=== PATIENT | male | born 1985 | race Caucasian/White ===

== ENCOUNTER 2020-05-05 18:11 | Emergency (ER) | payer OTHER, SELFPAY ==
--- NOTE | ~2020-05-05 | XR_ITS ---
EXAMINATION: XR foot LT min 3V DATE: 05/05/2020 18:36 INDICATION: Left foot pain TECHNIQUE: Dorsoplantar, lateral, and 2 oblique views of the left foot were obtained. COMPARISON: None. FINDINGS: There is no fracture, dislocation, or subluxation. The bones, soft tissues, and joint space s are normal. IMPRESSION: 1. No acute osseous abnormality. Reviewed, dictated and finalized at location A.
[2020-05-05 18:13] VITALS: BP 174/92; PULSE 57; RESP 17; TEMP 36.2; O2SAT 98
--- NOTE | 2020-05-05 19:51 | ED.GENADULT ---
HPI - General Adult General Chief complaint: Extremity Injury, Lower Stated complaint: foot injury Time Seen by Provider: 05/05/20 19:10 Source: patient Mode of arrival: ambulatory Limitations: no limitations History of Present Illness HPI narrative: Patient is a 34-year-old male who presents to emergency department for evaluation of left forefoot pain noting pain along the left forefoot along the great toe denies injury or trauma does have a job where he is frequently on his feet patient denies other injury or trauma has not taken anything for his symptoms denies similar occurrence in the past denies any radiation of pain denies known injury or trauma Related Data Home Medications Medication Instructions Recorded Confirmed fluoxetine [Prozac] 20 mg PO DAILY 05/05/20 05/05/20 Allergies Allergy/AdvReac Type Severity Reaction Status Date / Time No Known Allergies Allergy Unknown Verified 05/05/20 18:12 Review of Systems Review of Systems: All systems reviewed & are unremarkable except as noted in HPI and below PMFSH Social History Social History (Updated 05/05/20 @ 19:53 by Rambo Quinones PA-C) Smoking status: Never smoker Gender identity (if verbalized by the patient): Male Exam Narrative: Exam Narrative: GENERAL: Well-appearing, well-nourished, and in no acute distress. HEAD: Normocephalic, atraumatic. EYES: PERRLA and EOMI. ENT: Nares clear, no rhinorrhea or epistaxis. Mucous membranes moist. EXTREMITIES: Normal range of motion. No edema. Tenderness of the left forefoot involving the base of the great toe no erythema swelling or deformity noted SKIN: Warm, dry, no rash. NEURO: No focal deficits. Alert and oriented x3. Neurovascularly intact PSYCH: Normal mood and affect. Course Course Emergency Course: Patient in the room in no distress will be managed as a strain provided with reasons to return placed in Jp wrap and given orthopedic follow-up Vital Signs Vital signs: Vital Signs Temperature 97.2 F L 05/05/20 18:13 Pulse Rate 57 L 05/05/20 18:13 Respiratory Rate 17 05/05/20 18:13 Blood Pressure 174/92 H 05/05/20 18:13 Pulse Oximetry 98 05/05/20 18:13 Temperature 97.2 F L 05/05/20 18:13 Pulse Rate 57 L 05/05/20 18:13 Respiratory Rate 17 05/05/20 18:13 Blood Pressure 174/92 H 05/05/20 18:13 Pulse Oximetry 98 05/05/20 18:13 Medical Decision Making MDM Narrative Medical decision making narrative: Patients injury or pain is consistent with musculoskeletal etiology. No signs of neurological or vascular compromise on exam. Compartments and tisues are soft without signs of compartment syndrome. Pain is felt appropriate for further evaluation on an outpatient basis. Vital Signs Vital Signs: Vital Signs Temperature 97.2 F L 05/05/20 18:13 Pulse Rate 57 L 05/05/20 18:13 Respiratory Rate 17 05/05/20 18:13 Blood Pressure 174/92 H 05/05/20 18:13 Pulse Oximetry 98 05/05/20 18:13 Temperature 97.2 F L 05/05/20 18:13 Pulse Rate 57 L 05/05/20 18:13 Respiratory Rate 17 05/05/20 18:13 Blood Pressure 174/92 H 05/05/20 18:13 Pulse Oximetry 98 05/05/20 18:13 Imaging Data Radiologist's impression: ITS Impressions Foot X-Ray 05/05/20 18:40 IMPRESSION: 1. No acute osseous abnormality. Discharge Plan Discharge Clinical Impression: Strain of foot, left Patient Disposition: Home, Self-Care Condition: Stable Instructions: Antibiotic Form, Foot Sprain (ED) Additional Instructions: Wear Jp wrap with limited weight on the affected leg until able to bear weight without pain. Ice and elevate extremity. Pain medication as needed and directed. Follow up with your doctor for further care in the next 7 days. Return if symptoms worsen or concerns or any increase in redness swelling pain or fever over 100.5 Prescriptions: New naproxen 500 mg tablet 500 mg PO Q12H PRN (Reason: pain) Qty: 7 RF: 0 No Action flu
== END 2020-05-05 20:45 | disposition home or self-care (01) ==
PROVIDERS: Emergency Provider Emergency Medicine; PCP Family Medicine
DX: S96.912A Strain of unspecified muscle and tendon at ankle and foot level, left foot, initial encounter (principal); X58.XXXA Exposure to other specified factors, initial encounter
CPT/HCPCS: 73630; 99283

== ENCOUNTER 2020-09-10 13:19 | Emergency (ER) | payer OTHER, SELFPAY ==
--- NOTE | ~2020-09-10 | XR_ITS ---
EXAMINATION: XR chest 1V portable DATE: 09/10/2020 14:26 INDICATION: Cough and fever. TECHNIQUE: A single frontal view of the chest was obtained on 2 radiographs. COMPARISON: Chest 2 views 06/29/2017 FINDINGS: Sensitivity is decreased by obesity. The chest demonstrates clear lungs without pneumonia, pleural effusion, or pneumothorax. The heart size is normal. IMPRESSION: 1. No acute cardiopulmonary disease. Reviewed, dictated and finalized at location A. [employer]
[2020-09-10 13:29] VITALS: BP 132/79; PULSE 60; RESP 23; TEMP 36.8; O2SAT 96
--- NOTE | 2020-09-10 13:40 | ED.URI ---
HPI - URI/Sore Throat General Chief Complaint: Upper Respiratory Infection Stated Complaint: cough, fever, sob Time Seen by Provider: 09/10/20 13:23 History of Present Illness HPI Narrative: COugh, congestion, fever, headache for about the past week. Contacted PCP and was given a z-pack, which he just completed. He feels that his symptoms are not improveing. No SOB, nausea, vomiting. Related Data Home Medications Medication Instructions Recorded Confirmed allopurinol 09/10/20 aspirin 81 mg PO DAILY 09/10/20 09/10/20 atorvastatin 09/10/20 cetirizine mg 09/10/20 ezetimibe mg 09/10/20 omeprazole 09/10/20 Allergies Allergy/AdvReac Type Severity Reaction Status Date / Time No Known Allergies Allergy Unknown Verified 05/05/20 18:12 Review of Systems Review of Systems: All systems reviewed & are unremarkable except as noted in HPI and below Constitutional: Constitutional: Reports chills and Reports fever(s) ENT: Reports nasal congestion and Denies sore throat Cardiovascular: Cardiovascular: Denies chest pain Respiratory: Respiratory: Reports chest congestion, Reports cough and Denies dyspnea Gastrointestinal: Gastrointestinal: Denies abdominal pain, Denies nausea and Denies vomiting Musculoskeletal: Musculoskeletal: Reports myalgias Neurologic: Denies dizziness and Denies weakness PMF Past Medical History Medical History Healthy adult male Social History Social History Smoking status: Never smoker Gender identity (if verbalized by the patient): Male Exam Const: General: no acute distress, alert and ill appearing (mildly) Orientation/consciousness: patient oriented x3 HENMT: Head: normal to inspection Neck: Neck: normal visual inspection and no lymphadenopathy Chest: Chest palpation & inspection: no tenderness Resp: Effort & Inspection: normal respiratory effort Auscultation: clear to auscultation bilaterally, no rales, no rhonchi and no wheezes Cardio: Jugular venous distension: no JVD Rate: regular rate Rhythm: regular rhythm Heart sounds: no murmurs GI: Inspection: non-distended GI Palp: Yes Soft to palpation and No Tenderness to palpation present (GI) Skin: General skin exam: normal color Neuro: General: patient oriented x3 and moves all extremities Speech: normal speech Extrem: General: no edema Psych: Appearance: well kempt Affect: normal affect Course Vital Signs Vital signs: Vital Signs Temperature 36.8 C 09/10/20 13:29 Pulse Rate 60 09/10/20 13:29 Respiratory Rate 23 H 09/10/20 13:29 Blood Pressure 132/79 09/10/20 13:29 Pulse Oximetry 96 09/10/20 13:29 Temperature 36.8 C 09/10/20 13:29 Pulse Rate 71 09/10/20 15:15 Respiratory Rate 16 09/10/20 15:15 Blood Pressure 143/66 H 09/10/20 15:15 Pulse Oximetry 98 09/10/20 15:15 MDM - URI/Sore Throat Differential Diagnosis Differential diagnosis: Likely viral infection, bronchitis, influenza and other (COVID-19) Medical Records Attestation: I reviewed the patient's medical records. Lab Data Attestation: I reviewed the patient's lab results. Labs: Lab Results 09/10/20 Range/Units 14:48 SARS-CoV-2 RNA (RT-PCR) Positive A Imaging Data Radiologist's impression: ITS Impressions Chest X-Ray 09/10/20 14:27 IMPRESSION: 1. No acute cardiopulmonary disease. Discharge Plan Discharge Clinical Impression: Upper respiratory infection Patient Disposition: Home, Self-Care Condition: Stable Instructions: Upper Respiratory Infection (ED) Prescriptions: No Action atorvastatin 80 mg tablet RF: 0 cetirizine 10 mg tablet RF: 0 omeprazole 40 mg capsule,delayed release(DR/EC) RF: 0 allopurinol 300 mg tablet RF: 0 aspirin 81 mg Tablet 81 mg PO DAILY RF: 0 ezetimibe 10 mg tablet
[2020-09-10] MEDS: KETOROLAC 30 MG/ML VIAL (*BKC) IV PUSH (14:22)
[2020-09-10 14:56] VITALS: BP 134/79; PULSE 56; RESP 17; O2SAT 96
[2020-09-10 15:15] VITALS: BP 143/66; PULSE 71; RESP 16; O2SAT 98
[2020-09-11 01:02] LABS: SARS-CoV-2 RNA PCR Positive
== END 2020-09-10 15:14 | disposition home or self-care (01) ==
PROVIDERS: Emergency Provider Emergency Medicine; PCP Family Medicine
DX: U07.1 COVID-19 (principal); Z79.82 Long term (current) use of aspirin
CPT/HCPCS: 71045; 87635; 96374; 99284; C9803; J1885; U0003

== ENCOUNTER 2020-11-19 12:18 | Emergency (ER) | payer OTHER, SELFPAY ==
--- NOTE | ~2020-11-19 | XR_ITS ---
EXAMINATION: XR ankle RT min 3V INDICATION: Right ankle pain TECHNIQUE: Four views of the right ankle are obtained on five radiographs. COMPARISON: None available FINDINGS: There is no fracture, dislocation, or subluxation. The bones, soft tissues, and joint space s are normal. IMPRESSION: 1. No acute osseous abnormality. Reviewed, dictated and finalized at location A. POSTER
[2020-11-19 12:22] VITALS: BP 152/79; PULSE 73; RESP 18; TEMP 36.7; O2SAT 97
--- NOTE | 2020-11-19 12:58 | ED.LOWEXIN ---
HPI - Extremity Injury (Lower) General Chief Complaint: Extremity Injury, Lower Stated Complaint: injury rt foot Time Seen by Provider: 11/19/20 12:36 Source: patient Mode of arrival: wheelchair Limitations: no limitations History of Present Illness HPI Narrative: This is a 35 year old male that presents to the ER for right ankle injury sustained 2 days ago. Reports he sat on his foot while getting onto his bed. Reports since he has had pain that is worse with weight bearing and relieved with rest. Reports decreased ROM due to pain. Denies numbness. Related Data Home Medications Medication Instructions Recorded Confirmed allopurinol 09/10/20 aspirin 81 mg PO DAILY 09/10/20 09/10/20 atorvastatin 09/10/20 cetirizine mg 09/10/20 ezetimibe mg 09/10/20 omeprazole 09/10/20 Allergies Allergy/AdvReac Type Severity Reaction Status Date / Time No Known Allergies Allergy Unknown Verified 05/05/20 18:12 Review of Systems Review of Systems: Narrative: CONSTITUTIONAL: Denies fever MUSCULOSKELETAL: Reports joint pain, and myalgia. NEUROLOGIC: Denies numbness All systems reviewed & are unremarkable except as noted in HPI and below PMFSH Past Medical History Medical History (Updated 11/19/20 @ 13:59 by Elidia Humphreys PA-C) History of gastroesophageal reflux (GERD) History of hyperlipidemia Social History Social History Smoking status: Never smoker Gender identity (if verbalized by the patient): Male Exam Narrative: Exam Narrative: GENERAL: Well-appearing, well-nourished, and in no acute distress. HEAD: Normocephalic, atraumatic. EYES: EOMI. EXTREMITIES: No edema or obvious deformity. Decreased ROM in the right ankle due to pain. Normal DP pulses. Normal sensation SKIN: Warm, dry, no rash. NEURO: No focal deficits. Alert and oriented x3. PSYCH: Normal mood and affect Course Vital Signs Vital signs: Vital Signs Temperature 98.1 F 11/19/20 12:22 Pulse Rate 73 11/19/20 12:22 Respiratory Rate 18 11/19/20 12:22 Blood Pressure 152/79 H 11/19/20 12:22 Pulse Oximetry 97 11/19/20 12:22 Temperature 98.1 F 11/19/20 12:22 Pulse Rate 73 11/19/20 12:22 Respiratory Rate 18 11/19/20 12:22 Blood Pressure 152/79 H 11/19/20 12:22 Pulse Oximetry 97 11/19/20 12:22 MDM - Extremity Injury (Lower) MDM Narrative Medical decision making narrative: Patient presents to the emergency department for right ankle pain after an injury 2 days ago. Right ankle x-rays without acute osseous abnormalities. Patient was instructed on care of ankle sprain. He is to follow-up with primary care doctor. He was given warnings to return to the ER Imaging Data Radiologist's impression: ITS Impressions Ankle X-Ray 11/19/20 13:22 IMPRESSION: 1. No acute osseous abnormality. Critical Care Time Critical Care Time Critical Care Time: No Discharge Plan Discharge Clinical Impression: Ankle sprain and strain Patient Disposition: Home, Self-Care Condition: Stable Instructions: Ankle Sprain (ED) Additional Instructions: Return to the emergency department if you experience fever, redness and swelling of your leg, numbness, or any other symptoms that are concerning to you Wear BEV wrap and use crutches. No weight on the affected leg until able to bear weight without pain. Ice and elevate extremity. Pain medication as needed and directed. Follow up with your doctor for further care. Prescriptions: No Action atorvastatin 80 mg tablet RF: 0 cetirizine 10 mg tablet RF: 0 omeprazole 40 mg capsule,delayed release(DR/EC) RF: 0 allopurinol 300 mg tablet RF: 0 aspirin 81 mg Tablet 81 mg PO DAILY RF: 0 ezetimibe 10 mg tablet RF: 0 Follow-up/Referrals: Aries,MD Luis [Primary Care Provider] - 1 Week
[2020-11-19] MEDS: HYDROcodone/acetaminophen (*CRX) 5-325 MG TABLET 1 TAB PO (13:12)
--- NOTE | 2020-11-19 13:18 | PC.NURSE ---
sitting in room in wheelchair. SO present. pain medication given. waiting for xray results.
--- NOTE | 2020-11-19 13:45 | PC.NURSE ---
BEV wrap to right foot and right ankle. patient sitting in wheelchair in room. crutches given. denies need for crutch teaching. has used several times previously. waiting for discharge orders from provider.
== END 2020-11-19 14:20 | disposition home or self-care (01) ==
PROVIDERS: Emergency Provider Emergency Medicine; PCP Family Medicine
DX: S93.401A Sprain of unspecified ligament of right ankle, initial encounter (principal); S96.911A Strain of unspecified muscle and tendon at ankle and foot level, right foot, initial encounter; K21.9 Gastro-esophageal reflux disease without esophagitis; E78.5 Hyperlipidemia, unspecified; X58.XXXA Exposure to other specified factors, initial encounter
CPT/HCPCS: 73610; 99283; A9270

== ENCOUNTER 2023-05-11 12:00 | Emergency (ER) | payer OTHER, SELFPAY ==
--- NOTE | ~2023-05-11 | XR_ITS ---
EXAMINATION: XR hip RT 2V w AP pelvis DATE: 05/11/2023 14:08 INDICATION: Right pelvic pain. TECHNIQUE: An anteroposterior view of the pelvis and 2 views of right hip were obtained. COMPARISON: Pelvis CT 02/10/2019 FINDINGS: Bone alignment is normal. No fracture. Joint spaces are well maintained. IMPRESSION: 1. Normal pelvis and right hip. Reviewed, dictated and finalized at location A.
[2023-05-11 12:27] VITALS: BP 152/90; PULSE 70; RESP 16; TEMP 36.5; O2SAT 99
[2023-05-11] MEDS: KETOROLAC (*BKC) 60 MG/2 ML VIAL IM (13:57)
--- NOTE | 2023-05-11 14:03 | PC.NURSE ---
Pt taken to Xray by [facility] at this time.
--- NOTE | 2023-05-11 14:08 | PC.NURSE ---
Pt returned from xray to room by [employer].
--- NOTE | 2023-05-11 14:45 | PC.NURSE ---
ERP Dr Ray at bedside at this time.
--- NOTE | 2023-05-11 14:48 | ED.GENADULT ---
HPI - General Adult General Chief complaint: Urogenital-Male Stated complaint: GROIN PAIN Time Seen by Provider: 05/11/23 13:29 History of Present Illness HPI narrative: Patient is a 37-year-old male who presents ER with right groin pain. He was stepping out of his truck when he had sudden onset pain. No swelling or bulge noted. Pain worse with bearing weight. He has not taken any pain medication. Denies any pain in his testicle. Its in the crease where the leg meets the trunk. It radiates down his medial thigh as well. Related Data Home Medications Medication Instructions Recorded Confirmed allopurinol 300 mg tablet 09/10/20 aspirin 81 mg tablet 81 mg PO DAILY 09/10/20 09/10/20 atorvastatin 80 mg tablet 09/10/20 cetirizine 10 mg tablet mg 09/10/20 ezetimibe 10 mg tablet mg 09/10/20 omeprazole 40 mg capsule,delayed 09/10/20 release Allergies Allergy/AdvReac Type Severity Reaction Status Date / Time No Known Allergies Allergy Unknown Verified 05/11/23 12:00 Review of Systems Constitutional: Constitutional: Denies chills and Denies fever(s) Genitourinary: Genitourinary: Denies testicular pain and Denies urinary frequency Musculoskeletal: Musculoskeletal: Denies arthralgias, Denies joint swelling and Reports muscle cramps Integumentary/Breasts: Skin/Breast: Denies erythema Neurologic: Denies focal weakness and Denies numbness PMFSH Past Medical History Medical History (Updated 05/11/23 @ 14:49 by Ludin Johns MD) History of gastroesophageal reflux (GERD) History of hyperlipidemia Social History Social History (System 03/27/21 @ 09:24 by Ana Colby) Smoking status: Never smoker Gender identity (if verbalized by the patient): Male Exam Narrative: GENERAL: Well-appearing, well-nourished, and in no acute distress. HEAD: Normocephalic, atraumatic. CHEST: Clear to auscultation. No respiratory distress. HEART: Regular rate and rhythm. Normal peripheral pulses. : Normal external genitalia. No hernia in the inguinal canal bilaterally. No palpable mass in the right inguinal region or over the femoral artery. EXTREMITIES: Normal range of motion. No edema. SKIN: Warm, dry, no rash. NEURO: Alert and oriented x3. PSYCH: Normal mood and affect. Course Course Emergency Course: Symptoms felt to be related to muscle strain. Pain improved with Toradol. Discussed imaging results. Discharge home. Vital Signs Vital signs: Vital Signs Temperature 97.7 F 05/11/23 12:27 Pulse Rate 70 05/11/23 12:27 Respiratory Rate 16 05/11/23 12:27 Blood Pressure 152/90 H 05/11/23 12:27 Pulse Oximetry 99 05/11/23 12:27 Temperature 97.7 F 05/11/23 12:27 Pulse Rate 65 05/11/23 15:10 Respiratory Rate 16 05/11/23 15:10 Blood Pressure 126/70 05/11/23 15:10 Pulse Oximetry 96 05/11/23 15:10 Medical Decision Making Vital Signs Vital Signs: Vital Signs Temperature 97.7 F 05/11/23 12:27 Pulse Rate 70 05/11/23 12:27 Respiratory Rate 16 05/11/23 12:27 Blood Pressure 152/90 H 05/11/23 12:27 Pulse Oximetry 99 05/11/23 12:27 Temperature 97.7 F 05/11/23 12:27 Pulse Rate 65 05/11/23 15:10 Respiratory Rate 16 05/11/23 15:10 Blood Pressure 126/70 05/11/23 15:10 Pulse Oximetry 96 05/11/23 15:10 Lab Data Labs: Urine Characteristics Clear Discharge Plan Discharge Clinical Impression: Groin strain Patient Disposition: Home, Self-Care Condition: Stable Instructions: Groin Strain (ED) Additional Instructions: You strained a muscle in your groin. Take anti-inflammatory medication to decrease your discomfort, you may also take muscle relaxers in the evening but do not drive while taking them. Return the ER if you have new focal numbness or weakness to your leg, you develop new swelling in your groin region, or you have pain in y
[2023-05-11 15:10] VITALS: BP 126/70; PULSE 65; RESP 16; O2SAT 96
== END 2023-05-11 15:12 | disposition home or self-care (01) ==
PROVIDERS: Emergency Provider Emergency Medicine; PCP Family Medicine
DX: E78.5 Hyperlipidemia, unspecified (principal); K21.9 Gastro-esophageal reflux disease without esophagitis
CPT/HCPCS: 73502; 96372; 99283; J1885

== ENCOUNTER 2023-10-05 21:03 | Emergency (ER) | payer OTHER, SELFPAY ==
--- NOTE | ~2023-10-05 | XR_ITS ---
XR ankle LT min 3V 10/05/2023 21:29 INDICATION: Left ankle pain PROCEDURE: 4 views left ankle COMPARISON: . No prior studies for comparison. FINDINGS: Fracture, dislocation or subluxation is not identified. Mild lateral soft tissue swelling. No foreign bodies are identified. IMPRESSION: 1: NO ACUTE BONE OR JOINT ABNORMALITY IDENTIFIED. Reviewed, dictated and finalized at location A. TBREAD TRIMMER
[2023-10-05 21:04] VITALS: BP 149/69; PULSE 67; RESP 18; TEMP 36.3; O2SAT 99
--- NOTE | 2023-10-05 22:45 | ED.LOWEXIN ---
HPI - Extremity Injury (Lower) General Chief Complaint: Extremity Injury, Lower Stated Complaint: left ankle pain Time Seen by Provider: 10/05/23 21:53 Source: patient Mode of arrival: ambulatory Limitations: no limitations History of Present Illness HPI Narrative: Patient is a 38-year-old male who presents the ED with report of left ankle pain. Patient reports pain began yesterday and was mild at first. Pain has progressively worsened to the point he is having a hard time bearing weight on his left ankle. He denies any injury, fall, twisting his ankle. Reports mild redness and swelling. He took Ibuprofen earlier for the pain w/o significant improvement. Reports history of gout in the past which was in a toe of his R foot. Denies numbness or tingling. Related Data Home Medications Medication Instructions Recorded Confirmed allopurinol 300 mg tablet 09/10/20 aspirin 81 mg tablet 81 mg PO DAILY 09/10/20 09/10/20 atorvastatin 80 mg tablet 09/10/20 cetirizine 10 mg tablet mg 09/10/20 ezetimibe 10 mg tablet mg 09/10/20 omeprazole 40 mg capsule,delayed 09/10/20 release Allergies Allergy/AdvReac Type Severity Reaction Status Date / Time No Known Allergies Allergy Unknown Verified 10/05/23 21:23 Review of Systems Review of Systems: CONSTITUTIONAL: Denies fever, chills, or sweats. MUSCULOSKELETAL: See HPI. NEUROLOGIC: Denies headache, dizziness, numbness, or weakness. All systems reviewed & are unremarkable except as noted in HPI and below PMFSH Past Medical History Medical History History of gastroesophageal reflux (GERD) History of hyperlipidemia Social History Social History Smoking status: Never smoker Gender identity (if verbalized by the patient): Male Exam Narrative: GENERAL: Well appearing, morbidly obese with BMI 45.2, non-toxic, in no acute distress. HEAD: Normocephalic, atraumatic. RESPIRATORY: Airway patent, respirations nonlabored. CARDIOVASCULAR: Regular rate and rhythm without murmurs, rubs, or gallops. Pedal pulses 2+ ABDOMINAL: Soft, nontender, nondistended. Normoactive BS. MUSCULOSKELETAL: Moves all extremities. No gross deformities. Limited range of motion of left ankle due to pain. Mild swelling noted to left ankle joint. Minimal erythema, no warmth. Tenderness to palpation across this anterior lateral ankle/dorsal foot. No tenderness throughout remainder of foot. SKIN: Warm, dry, normal color. NEURO: A&O X3. Speech clear. Cranial nerves II-XII grossly intact. No ataxic movements. PSYCHIATRIC: Appropriate mood and affect. Normal interaction. Course Vital Signs Vital signs: Vital Signs Temperature 97.3 F L 10/05/23 21:04 Pulse Rate 67 10/05/23 21:04 Respiratory Rate 18 10/05/23 21:04 Blood Pressure 149/69 H 10/05/23 21:04 Pulse Oximetry 99 10/05/23 21:04 Oxygen Delivery Room Air 10/05/23 21:04 Temperature 97.3 F L 10/05/23 21:04 Pulse Rate 67 10/05/23 21:04 Respiratory Rate 18 10/05/23 21:04 Blood Pressure 149/69 H 10/05/23 21:04 Pulse Oximetry 99 10/05/23 21:04 Oxygen Delivery Room Air 10/05/23 21:04 MDM - Extremity Injury (Lower) MDM Narrative Medical decision making narrative: Patient presented to ED with 2 day history of left ankle pain. No signs of neurologic or vascular compromise on physical examination. Compartments are soft without signs of compartment syndrome. XR negative. No injury. Suspect gout versus ankle strain. No lower extremity swelling or calf tenderness to suggest DVT. No wounds to suggest cellulitis. Will treat for possible gout with naproxen, Jp bandage, crutches for assistance with ambulation. Patient is felt to be stable for discharge home and further outpatient management and treatment. Advised patient to follow-up with primary care doctor, savannah nugent
[2023-10-05] MEDS: KETOROLAC (*BKC) 60 MG/2 ML VIAL IM (23:20)
== END 2023-10-05 23:34 | disposition home or self-care (01) ==
PROVIDERS: Emergency Provider Physician Assistant; PCP Family Medicine
DX: M25.572 Pain in left ankle and joints of left foot (principal); E78.5 Hyperlipidemia, unspecified
CPT/HCPCS: 73610; 96372; 99283; J1885

== ENCOUNTER 2023-10-27 22:09 | Emergency (ER) | payer OTHER, SELFPAY ==
--- NOTE | ~2023-10-27 | XR_ITS ---
Clinical Indication: Cough, fever PA and lateral views of the chest: Comparison: 09/10/2020 Findings: The lungs are clear, without evidence of focal consolidation or pleural effusion. Cardiome diastinal silhouette is within normal limits. Bones and soft tissues are unremarkable. Impression: Normal chest. Reviewed, dictated and finalized at [facility]. SH HISTORY PROFESSOR Impression: Normal chest.
[2023-10-27 22:10] VITALS: BP 139/68; PULSE 82; RESP 18; TEMP 37.3; O2SAT 98
[2023-10-28 00:16] VITALS: PULSE 91; RESP 16; TEMP 37.7; O2SAT 96; O2SAT 98
--- NOTE | 2023-10-28 00:32 | ECG_ITS ---
Measurements Intervals [place] Rate: 74 P: 17 NE: 159 QRS: 23 QRSD: 94 T: 93 QT: 341 QTc: 380 Interpretive Statements SINUS RHYTHM NONSPECIFIC T-WAVE ABNORMALITY- HIGH LATERAL LEADS BASELINE ARTIFACT- V5-V6 BORDERLINE ECG NO PREVIOUS ECG AVAILABLE FOR COMPARISON Electronically Signed On 10-28-2023 6:39:13 FOREMAN/PROJECT MANAGER by Kevon Patel D.O.
[2023-10-28 00:53] LABS: Influenza A QL RT-PCR Positive (Negative); Influenza B QL RT-PCR Negative (Negative); RSV RNA, RT-PCR Negative (Negative); SARS-CoV-2 RNA PCR Negative (Negative)
[2023-10-28] MEDS: ACETAMINOPHEN 500 MG TABLET 1000 MG PO (01:21)
[2023-10-28 01:44] VITALS: BP 110/96; PULSE 70; RESP 20; O2SAT 96
--- NOTE | 2023-10-28 01:46 | ED.URI ---
HPI - URI/Sore Throat General Chief Complaint: Shortness of Breath/Dyspnea Stated Complaint: pain with inspiration Time Seen by Provider: 10/28/23 00:31 Source: patient and family Limitations: no limitations History of Present Illness HPI Narrative: Patient is a 38-year-old male presents to the emergency department accompanied by his for multiple complaints. Patient states since Thursday or Thursday he has been experiencing generalized body aches, chills, difficulty breathing, headache, nasal congestion, cough with minimal sputum production. Patient denies sick contacts. Patient denies fever, recent injuries, urinary discomfort, rash, sore throat, nausea, vomiting, diarrhea, chest pain. Patient admits to using [id number] Motrin and Mucinex for symptoms. Related Data Home Medications Medication Instructions Recorded Confirmed allopurinol 300 mg tablet 09/10/20 aspirin 81 mg tablet 81 mg PO DAILY 09/10/20 09/10/20 atorvastatin 80 mg tablet 09/10/20 cetirizine 10 mg tablet mg 09/10/20 ezetimibe 10 mg tablet mg 09/10/20 omeprazole 40 mg capsule,delayed 09/10/20 release Allergies Allergy/AdvReac Type Severity Reaction Status Date / Time No Known Allergies Allergy Unknown Verified 10/27/23 22:16 Review of Systems Review of Systems: A 10 system review of systems was completed on the patient and is negative except for what is stated in the HPI. Nursing and ancillary documentation was reviewed. [facility] Past Medical History Medical History History of gastroesophageal reflux (GERD) History of hyperlipidemia Social History Social History Smoking status: Never smoker Gender identity (if verbalized by the patient): Male Comments At time of signature, I have reviewed and agree with nursing past medical, surgical, social and family history unless otherwise noted. Please see the nursing chart for further information. There is no relevant family history pertinent to the presenting complaint. Exam Narrative: CONST: No acute distress. Well nourished. Obese. HENMT: Head is normocephalic and atraumatic. Tacky mucous membranes. No posterior oropharynx erythema. EYES: No conjunctival icterus, injection, or pallor. PERRL. NECK: No meningeal signs. No palpable cervical lymphadenopathy. RESP: Able to speak in full sentences. Normal respiratory effort. CTAB. CARDIO: Regular rate. Regular rhythm. 2+ DP and radial pulses bilaterally. GI: Nondistended. No tenderness to palpation. Soft. : No CVA tenderness to palpation. SKIN: No rashes or lesions noted on exposed skin. NEURO: Oriented x3. Moves all extremities. EXTREM/MSK/BACK: No pedal edema. PSYCH: Normal affect. Course Vital Signs Vital signs: Vital Signs Temperature 99.2 F 10/27/23 22:10 Pulse Rate 82 10/27/23 22:10 Respiratory Rate 18 10/27/23 22:10 Blood Pressure 139/68 10/27/23 22:10 Pulse Oximetry 98 10/27/23 22:10 Oxygen Delivery Room Air 10/27/23 22:10 Temperature 99.9 F H 10/28/23 00:16 Pulse Rate 70 10/28/23 01:44 Respiratory Rate 20 10/28/23 01:44 Blood Pressure 110/96 H 10/28/23 01:44 Pulse Oximetry 96 10/28/23 01:44 Oxygen Delivery Room Air 10/28/23 00:16 MDM - URI/Sore Throat MDM Narrative Medical decision making narrative: Patient presents with the above complaint. Initial vitals are remarkable for no significant abnormalities. Physical examination as noted above. Plan discussed: COVID/flu/RSV nasopharyngeal PCR testing, chest x-ray, EKG, Tylenol 1 g p.o. Patient was reassessed at the bedside. No changes in physical exam. Patient is in no acute distress. The patient has remained stable throughout the entire ED visit. Counseled patient regarding diagnostic results and potential diagnosis. Anticipatory guidance provided. Patient instructed to follow up
[2023-10-28] MEDS: OSELTAMIVIR PHOSPHATE 75 MG CAPSULE PO (01:57)
== END 2023-10-28 02:01 | disposition home or self-care (01) ==
PROVIDERS: Emergency Provider Student in an Organized Health Care Education/Training Program; PCP Family Medicine
DX: J10.1 Influenza due to other identified influenza virus with other respiratory manifestations (principal); E78.5 Hyperlipidemia, unspecified; Z20.822 Contact with and (suspected) exposure to COVID-19
CPT/HCPCS: 71046; 87637; 93005; 99284; A9270

== ENCOUNTER 2024-12-12 10:08 | Outpatient (CLI) | payer OTHER, SELFPAY ==
[2024-12-12 11:21] LABS: Add Urine Microscopic? NO; Appearance Urine Clear (Clear); Bilirubin Urine Negative (Negative); Blood Urine Negative (Negative); Color Urine Yellow (Yellow); Glucose Urine UA Negative (Negative); Ketones Urine Trace mg/dL (Negative); Leukocyte Esterase Ur Negative LEU/UL (Negative); Nitrate Urine Negative (Negative); Protein Urine Negative (Negative); Specific Grav Ur 1.022 (1.001-1.035); pH Urine 7.5 (5.0-9.0)
[2024-12-12 11:23] LABS: Basophils Absolute Auto 0.1 K/mm3 (0.0-0.1); Basophils Percent Auto 0.8 % (0.2-1.2); Eosinophils Absolute Auto 0.2 K/mm3 (0-0.3); Eosinophils Percent Auto 3.9 % (0-4.4); Hematocrit 44.5 % (42.0-52.0); Hemoglobin 15.3 g/dL (14.0-18.0); Immature Granulocyte Absolute 0.03 K/mm3 (0.00-0.031); Immature Granulocyte Percent A 0.5 % (0-0.5); Lymphocytes Absolute Auto 2.17 K/mm3 (0.9-3.2); Lymphocytes Percent Auto 36.7 % (18.3-44.2); Mean Corpuscular HGB Conc 34.4 g/dl (32-36); Mean Corpuscular Hemoglobin 29.7 pg (26-34); Mean Corpuscular Volume 86.2 fl (80-100); Mean Platelet Volume 10.5 fl (7.4-10.4); Monocytes Absolute Auto 0.6 K/mm3 (0.1-0.6); Monocytes Percent Auto 9.5 % (2.6-8.5); Neutrophils Absolute Auto 2.9 K/mm3 (1.3-6.7); Neutrophils Percent Auto 48.6 % (45.5-73.1); Platelet Count Result 233 k/mm3 (150-375); Red Blood Count 5.16 M/mm3 (4.6-6.20); Red Cell Distribution Width 12.1 % (11.5-14.5); White Blood Count 5.9 K/mm3 (4.5-10.0)
[2024-12-12 11:37] LABS: Alanine Aminotransferase 35 U/L (6-50); Albumin Level 4.6 g/dL (3.5-5.1); Alkaline Phosphatase 89 U/L (38-126); Anion Gap 12 mmol/L (4-12); Aspartate Amino Transferase 33 U/L (17-59); Bilirubin,Total 0.5 mg/dL (0.2-1.3); Blood Urea Nitrogen 12 mg/dL (9-20); Calcium 9.6 mg/dL (8.4-10.2); Carbon Dioxide 24 mmol/L (22-30); Chloride 104 mmol/L (98-107); Cholesterol 269 mg/dL (0-200); Estimated Glomerular Filt Rate > 60; Glucose 90 mg/dL (65-110); HDL Direct 42 mg/dL; Potassium 4.3 mmol/L (3.4-5.0); Sodium 140 mmol/L (137-145); Triglycerides 213 mg/dL (<150)
[2024-12-12 11:47] LABS: LDL Cholesterol Direct 161 mg/dL
[2024-12-12 12:19] LABS: Free T4 Free Thyroxine 0.82 ng/dL (0.78-2.19)
[2024-12-12 16:59] LABS: Hemoglobin A1C 5.2 % (<5.7)
[2024-12-13 06:53] LABS: FSH <0.7 mIU/mL (1.4-12.8); LH 0.2 mIU/mL (1.5-9.3); Sex Hormone Binding Globulin 17 nmol/L (10-50)
[2024-12-14 08:38] LABS: Prostate Specific Antigen 0.7 ng/mL (< OR = 4.0)
[2024-12-15 23:43] LABS: Testosterone Free 42.3 pg/mL (46.0-224.0)
== END 2024-12-12 10:09 | disposition home or self-care (01) ==
PROVIDERS: PCP Family Medicine; Referring Provider Family Medicine
DX: E55.9 Vitamin D deficiency, unspecified (principal); E66.01 Morbid (severe) obesity due to excess calories; Z00.00 Encounter for general adult medical examination without abnormal findings
CPT/HCPCS: 36415; 80053; 80061; 81003; 82306; 82672; 83001; 83002; 83036; 84153; 84270; 84402; 84439; 84443; 85025; 85305; G0103

== ENCOUNTER 2025-10-08 20:26 | Emergency (ER) | payer OTHER, SELFPAY ==
--- OUTSIDE RECORDS SUMMARY | 2019-08-01 03:55 | XMS_ITS | Continuity of Care Document ---
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 Please verify the information with the corey of the legal document before using it for clinical purposes. Encounters Encounter Description Practice Location Reason(s) For Visit Diagnoses Date Provider Providers Copied on Encounter DISABILITY EXAMINATION [facility] , [address], [place], [address], [place] tel:[phone] [facility] Body mass index (BMI) 40.0-44.9, adultElevated blood-pressure reading, w/o diagnosis of htnLow back painStrain of lumbar region, initial encounter [address] [place]. [address] [address], [place], [place], [id number] . tel: [phone] Family History Family Member Type Diagnosis Age At Onset Mother Problem (finding) Alive and well Father Problem (finding) Cardiovascular disease Father Problem (finding) malignant neop lasm of skin (Cause Of ) Payers Payer name Insurance type Covered alliance party ID Authoriza tion(s) No Information Social History Type Description Quantity Date Captured Comments Alcohol Use Details Caffeine Use Details soda Tobacco Use Status Current non-smoker 19 Smoking Status Never smoker Non-Smoking Tobacco Use Details : No Details Available : No Details Available Sex Male Vital Signs Date / Time: Height Weight BMI Pulse Rate Blood Pressure Temperature Respiratory Rate Body Surface Area Head Circumference Head Circ. Percentile Wt./Sudhir. Percentile BMI percentile Pulse Ox Inhaled Ox 11:43 AM 71.00 in 136.078 kg (300.00 lbs) 41.8 4 kg/m eter (2) 77 /min 141/97 mm[Hg] Chief Complaint And Reason For Visit No Information Reason For Referral Reason For Referral No Information Plan Of Treatment Date Type Action Status Goal Lifestyle education regardin g diet completed History Of Present Illness Encounter Date Complaint History Of Prese nt Illness No Information Functional Status Date Functional Assessmen t Pain Score 3/10 Instructions Date Instruction Additional Infor mation Lifestyle education regarding di et Related to Body mass index (BMI) 40.0-44.9, adult Giving encouragement to exercise Related to Elevated blood-pressure reading, without diagnosis of hypertension Assessments Type Assessment Date assessment Body mass index (BMI) 40.0-44.9, adult assessment Elevated blood-press ure reading, without diagnosis of hypertension assessment Low back pain assessment Strain of lumbar region, initial encounter Patient Care Teams Name Effective Dates (start - stop) Status Members No Information
--- NOTE | ~2025-10-08 | XR_ITS ---
XR hand LT 2V 10/08/2025 21:10 Indication: Dog bite Procedure: 2 views left hand Comparison: No prior studies for comparison. Findings: No fracture, subluxation or dislocation. There is foreign body overlying the third metacarpal. Normal mineralization. Normal anatomic alignment. Impression: 1: Foreign body overlying the third metacarpal of uncertain origin. Reviewed, dictated and finalized at location O. IFICATION MANAGER Impression: 1: Foreign body overlying the third metacarpal of uncertain origin.
[2025-10-08 20:27] VITALS: BP 149/79; PULSE 67; RESP 16; TEMP 36.7; O2SAT 99
--- OUTSIDE RECORDS SUMMARY | 2025-10-08 20:29 | XMS_ITS | Clinical Summary ---
Author Organization [facility] Address [address] [place] [address] Care Team Providers Care Light Technician Name Role Phone Unavailable Primary Care Provider Unavailabl e Source Comments [facility],non-owned Affiliates and Associated Physician Practices is amultiple site organization consisting of ambulatory clinics and hospital sitesin [place], [place], [place] and [place]. This disclosure is being madepursuant to the Care Everywhere program and may not contain all information available regarding this patient. Last updated 18.[facility] Allergies No known active allergies Medications * Be aware that medications may not be up to date on this document. Alwaysverify current medications with the patient. albuterol HFA (PROAIR HFA) 108 (90 BASE) MCG/ACT inhaler Inhale 2 Puffs by mouth every 4 hours as needed for Shortness of Breath, Wheezing or Cough 1 Inhaler 7 Active benzonatate (TESSALON) 100 MG capsule Take 1 Cap by mouth 3 times daily as needed for Cough 30 Cap 7 Active Active Problems No known active problems Social History Tobacco Use Types Packs/Day Years Used Date Smoking Tobacco: Never Sex and Gender Information Value Date Recorded Sex Assigned at Not on file Legal Sex Male 11:09 AM CDT Gender Identity Not on file Sexual Orientation Not on file Last Filed Vital Signs Vital Sign Reading Time Taken Comments Blood Pressure 128/90 01/28/2017 4:41 PM CDT Pulse 69 01/28/2017 4:41 PM CDT Temperature 36.9 C (98.5 F) 01/28/2017 4:41 PM CDT Respiratory Rate 18 01/28/2017 4:41 PM CDT Oxygen Saturation 97% 01/28/2017 4:41 PM CDT Inhaled Oxygen Concentration - - Weight 136.1 kg (300 lb) 01/28/2017 4:41 PM CDT Height 177.8 cm (5' 10) 01/28/2017 4:41 PM CDT Body Mass Index 43.05 01/28/2017 4:41 PM CDT Plan of Treatment Health Maintenance Due Date Last Done Comments LIPID TESTING 1985 HIV SCREENING 2000 HEPATITIS C SCREENING 07/04/2003 DTAP/TDAP/TD VACCINES (1 - Tdap) 2004 HEPATITIS B VACCINE (1 of 3 - 19+ 3-dose series) 2004 HPV VACCINE (1 - 3-dose SCDM series) 2012 DEPRESSION SCREENING 10/12/2024 COVID-19 VACCINE (1 - 2024-2 6 season) 2025 INFLUENZA VACCINE (#1) 2025 ZOSTER VACCINE (1 of 2) 2035 HIB VACCINE Aged Out No longer eligi ble based on patient's age to complete this topic MENINGOCOCCAL (Group B) VACC INE SHARED DECISION-MAKING Aged Out No longer eligibl e based on patient's age to complete this topic MENINGOCOCCAL GROUPS A/C/Y/W VACCINE Aged Out No longer eligible b ased on patient's age to complete this topic PNEUMOCOCCAL VACCINE Aged Out No long er eligible based on patient's age to complete this topic Insurance [facility]
--- OUTSIDE RECORDS SUMMARY | 2025-10-08 20:29 | XMS_ITS | Data Portability ---
Author Organization [place] [facility] [employer], Main Office Address [address] [place] [address] Care Team Providers Care Drama Professor Name Role Phone LUIS CHRIS Primary Care Provider LUIS CHRIS Referring Provider [phone] LUIS CHRIS Primary Care Provider [phone] Assessment Encounter Date Assessment Date Assessment LastModified by Organization Details LastModified Time 01/30/2025 01/30/2025 This note is dictated and transcribed by [employer]. [employer] variances may occur. Despite proofreading, typographical errors may occur. Occasional wrong-word or '[id number]' substitutions may have occurred due to the inherent limitations of voice recording. Read the chart carefully and recognize, using context, where substitutions have occurred. [email or web address] Not available 01/30/2025 10:22:56 01/31/2025 01/31/2025 39 yo M with - WT LOSS PROGRAM - HTN (diet controlled) - HLD - HTG - ED - GOUT - GERD - VIT D DEFICIENCY - ALLERGIC RHINITIS - CHRONIC LOW BACK PAIN - BENI (On Cpap) - MORBID OBESITY III - H/O H PYLORI GASTRITIS - H/O CHEST PAIN, Intermittent Annual labs: 12/12/24. Annual labs: 11/25/21. X-ray Rt ankle: 11/19/20. CXR: 09/10/20. Annual labs: 07/19/20. US Abdo: 04/24/20. Labs: 04/23/20. CXR: 11/03/19. X-ray L-spine: 11/03/19. Sleep study: 08/12/19. Annual labs: 05/19/19. Wt: 317(12/09/21) - 326(08/13/22) [Pt stopped] Wt: 334(12/15/24) - 320(01/31/25) D/w pt in detail about his findings, recent labs & imagines and further plan of care. All meds verified with pt. Meds as directed. Risks Vs benefits of Aspirin 81mg po daily with food explained. Pt agreed. BP diary education given and call us if any concerns. Diet and exercise explained in detail. Explained about different options for wt loss. Educated pt about alarming symptoms to monitor at home and call us back or get checked in ED. Cont f/u with Chemical Analytical Sampler as per schedule. Cont f/u with GI as per schedule. Cont f/u with Cardio as per schedule. Cont f/u with Ophtho as per schedule. Offered to refer to Wt loss clinic; but pt declined. Zepbound was not covered with his insurance. HM: EGD - 06/04/20, H pylori gastritis ++. Cont f/u with GI as per their recommendations. Flu - Pt declined. Tdap - At HD. F/u in 2 months. Lipids, uric acid in 04/05. Annual labs in 12/07. [email or web address] Not available 01/31/2025 16:29:09 07/25/2025 07/25/2025 40 yo M with - CHRONIC EPISTAXIS - WT LOSS PROGRAM - HTN - HLD - HTG - ED - GOUT - GERD - VIT D DEFICIENCY - ALLERGIC RHINITIS - CHRONIC LOW BACK PAIN - BENI (On Cpap) - MORBID OBESITY III - H/O H PYLORI GASTRITIS - H/O CHEST PAIN, Intermittent Annual labs: 12/12/24. Annual labs: 11/25/21. X-ray Rt ankle: 11/19/20. CXR: 09/10/20. Annual labs: 07/19/20. US Abdo: 04/24/20. Labs: 04/23/20. CXR: 11/03/19. X-ray L-spine: 11/03/19. Sleep study: 08/12/19. Annual labs: 05/19/19. Wt: 317(12/09/21) - 326(08/13/22) [Pt stopped] Wt: 334(12/15/24) - 320(01/31/25) - 305(07/25/25) D/w pt in detail about his findings, recent labs & imagines and further plan of care. Will refer pt to ENT. All meds verified with pt. Meds as directed. Risks Vs benefits of Aspirin 81mg po daily with food explained. Pt agreed. BP diary education given and call us if any concerns. Diet and exercise explained in detail. Explained about different options for wt loss. BP diary education given. Educated pt about alarming symptoms to monitor at home and call us back or get checked in ED. F/u with ENT as per schedule. Cont f/u with Chemical Analytical Sampler as per schedule. Cont f/u with GI as per schedule. Cont f/u with Cardio as per schedule. Cont f/u with Ophtho as per schedule. Offered to refer to Wt loss clinic; but pt declined. Zepbound was not covered with his insurance. HM: EGD - 06/04/20, H pylori gastritis ++. Cont f/u with GI as per their recommendations. Flu - Pt declined. Tdap - Pt declined. F/u in 1 month. Lipids, uric acid before next visit. Annual labs in 12/07. Not available 07/25/2025 11:38:28 Plan of Treatment Reminders Order Date Submit Date Provider Last Modified By Organization Details Last Modified Time Details Appointments None recorded. Lab uric acid, serum or plasma [address] (Lab), [address] [place], [address], 16:29:01 lipid panel, serum [address] (Lab), [address] [place], [address], 16:29:01 Referral ENT surgery referral - Please call patient to schedule an appointmen t. Thank you 2024 CARY Mills MD, [address], [place], [address], 10/14/202 5 13:01:03 director of safety referral - Please call patient to schedule an appointmen t. Thank you. 2024 025 [email or web address] Basil Cordero DPM, [address] [facility], [place], [address], 5 11:29:58 Procedures nasal cautery (PROC) 2024 025 [email or web address] Not available 09:46:17 Surgeries None recorded. Imaging XR, foot, 3 or more view 2024 025 [email or web address] [facility] [place], [address] [facility] [address], [place], [address], 5 10:52:28 XR, foot, 3 or more view [email or web address] [place] [address] Podiat[facility] [place], [address] [facility] [address], [place], [address], 5 10:52:28 XR, foot, 3 or more view 2024 025 [email or web address] [facility] ([facility]), [address] [place], [address], 5 14:23:31 Medication Orders allopurino l 300 mg tablet 2024 025 [facility]/Pharmacy #[id number], [address], [place], [address], 5 11:10:45 ezetimibe 10 mg tablet 2024 025 [facility]/Pharmacy #[id number], [address], [place], [address], 5 11:11:30 lisinopril 5 mg tablet 2024 025 [facility] #[id number], [address], [place], [address], 11:10:48 phentermin e 30 mg capsule 2024 025 [email or web address] [id number], [address], [place], [address], 14:15:51 atorvastat in 80 mg tablet 2024 [id number], [address], [place], [address], 11:10:55 Wegovy 0.25 mg/0.5 mL subcutaneo us pen injector 2024 [id number], [address], [place], [address], 14:16:00 ergocalcif alley (vitamin D2) 1,250 mcg (50,000 unit) capsule 2024 [id number], [address], [place], [address], 11:10:53 omeprazole 40 mg capsule,de layed release 2024 025 [id number], [address], [place], [address], 11:10:58 allopurino l 300 mg tablet 2024 025 [facility]/Pharmacy #[id number], [address], [place], [address], 16:23:43 ezetimibe 10 mg tablet 2024 025 [id number], [address], [place], [address], 5 16:23:44 phentermin e 15 mg capsule 2024 025 [email or web address] [id number], [address], [place], [address], 11:12:30 atorvastat in 80 mg tablet 2024 025 [id number], [address], [place], [address], 5 16:23:45 ergocalcif alley (vitamin D2) 1,250 mcg (50,000 unit) capsule 2024 025 [id number], [address] [place], [address], 5 16:23:42 omeprazole 40 mg capsule,de layed release 2024 025 [id number], [address] [place], [address], 5 16:23:42 Voltaren Arthritis Pain 1 % topical gel 2024 025 [id number], [address] [place], [address], 5 10:49:12 indomethac in 50 mg capsule 2024 025 [email or web address] [facility]/Pharmacy #[id number], [address] [place], [address], 14:15:29 Patient TargetsNo targets recorded. Patient Instructions Encounter Date Encounter Id Patient Instructions Last Modified By Organization Details Last Modified Time 01/03/2025 [id number] When You Want to Lose Weight: Care Instructions [email or web address] Not available 01/03/2025 11:35:07 01/30/2025 [id number] gout diet [email or web address] Not available 01/11 10:53:26 calf/achilles stretching/streng thening exercises [email or web address] Not available 01/30/2025 10:53:08 07/25/2025 [id number] high blood pressure: care instructions [email or web address] Not available 07/25/2025 11:38:17 When You Want to Lose Weight: Care Instructions [email or web address] Not available 07/25/2025 11:38:17 Reason for Referral Chemical Analytical Sampler Referral for Pain in right foot Chronic Rt foot pain, x-ray done Please call patient to schedule an appointment. Thank you. Referring Physician: Luis Chris [facility], Encounter Date: 01/03/2025 ENT Surgery Referral for Rec urrent bleeding of nose Please call patient to schedule an appointment. Thank you Referring Physician: Luis Chris [facility], Encounter Date: 07/25/2025 Results Created Date Observation Date Name Description Value Unit Range Abnormal Flag Note LastModifiedBy Organization Detail LastModifiedTime 01/31/20 25 XR, foot, 3 or more view No observ ation record ed. [email or web address] [facility] [place] [address] [facility] [address] [facility] [address], [place], [address], 01/30/2025 10:52:09 01/31/20 25 XR, foot, 3 or more view No observ ation record ed. [email or web address] [facility] [place] [address], [place], [address], 01/30/2025 10:52:25 Result Notes None recorded. Problems Name Problem SNOMED Code Status Onset Date Resolution Date Notes Provider Name and Address Organization Details Recorded Time Hyperchol esterolem ia 32127716 Completed Not Available [facility] 3 02:29:45 Angina pectoris 186888757 Active Not Available [facility] 3 02:29:45 Gastroeso phageal reflux disease without esophagit is 627444448 Active 2018 Luis Chris MD [address], [address], [place], [address] , [email or web address] 5 10:50:23 Chronic low back pain 233756488 Active 2018 Not Available [employer] 3 02:29:45 Chest pain 78848974 Active 2018 Not Available [employer] 3 02:29:45 Dysphagia 14798123 Active 2018 Not Available [employer] 3 02:29:45 Hyperlipi demia 54251573 Active 2018 Luis Chris MD [address], [address], [place], [address] , [email or web address] 5 10:50:23 Daytime hypersomn ia 97025899725 102 Active 2018 Not Available [employer] 3 02:29:45 Vitamin D deficienc y 94815410 Active 2018 Luis Chris MD [address], [address], [place], [address] , [email or web address] 5 10:50:23 Gout 41731122 Active 2018 Luis Chris MD [address], [address], [place], [address] , [email or web address] 5 10:50:23 Obstructi ve sleep apnea syndrome 86973799 Active 2019 Luis Chris MD [address], [address], [place], [address] , [email or web address] 5 11:36:47 Right upper quadrant pain 669621690 Active 2019 Not Available [employer] 3 02:29:45 Seasonal allergic rhinitis 958478361 Active 2019 Not Available [employer] 3 02:29:[address] pylori-as sociated gastritis 559494289 Active 2019 Not Available [employer] 3 02:29:46 Fatigue 68402146 Active 2019 Luis Chris MD [address], [place], [address] , [employer] 5 10:50:23 Complaini ng of erectile dysfuncti on Active 2020 Not Available [employer] 3 02:29:45 Hypertens enrique disorder 61965366 Active 2020 Not Available [employer] 3 02:29:45 Adult health examinati on Active 2021 Not Available [employer] 3 02:29:45 Cough 76519893 Active 2023 Luis Chris MD [address], [place], [address] , [employer] 4 14:45:40 Bronchiti s 86708389 Active 2023 Luis Chris MD [address], [place], [address] , [employer] 4 14:45:46 History of influenza 495846818 Active 2023 Luis Chris MD [address], [place], [address] , [employer] 4 15:04:33 Morbid obesity 714415111 Active 2024 Luis Chris MD [address], [place], [address] , [employer] [facility] 5 10:50:23 Hypertrig lyceridem ia 599189666 Active 2024 Luis Chris MD [address], [place], [address] , [employer] [facility] [employer] [facility] 5 10:50:23 Pain in right foot 62238507949 9107 Active 2024 Luis Chris MD [address], [place], [address] , [facility] [employer] [facility] [employer] [facility] 5 11:22:38 Pain in bilateral feet 03854158888 764010 Active 2024 Basil Cordero DPM [address], [place] [address], [place], [address] , [facility] [employer] [facility] [employer] [facility] 5 10:46:21 Tendiniti s of foot 596821464 Active 2024 Basil Cordero DPM [address], [address], [place], [address] , [facility] [employer] [facility] [employer] [facility] 5 10:48:19 Bilateral bone spur of calcaneum 61043501384 787618 Active 2024 Basil Cordero DPM [address] [facility], [address] [address], [place], [address] , [employer] [facility] [employer] [facility] 5 10:52:40 Benign hypertens ion 57926295 Active 2024 Luis Chris MD [address], [place] [address], [place], [address] , [facility] [employer] [facility] [employer] [facility] 5 11:09:29 Recurrent bleeding of nose Active 2024 Luis Chris MD [address], [place] [address], [place], [address] , [facility] [employer] [facility] [employer] [facility] 5 11:11:23 Anterior epistaxis 109735988 Active 2024 Shine Mills MD [address], [place] [address], [place], [address] , [facility] [employer] [facility] 5 14:29:59 Notes:Medical History: Rhini tis Obesity with mod OSAHS, AHI = 27, 12/10/20, on CPAP c/o IVRC Hypertension Hyperlipidemia H. pylori gastritis [facility] ED Vit D deficiency Low back pain Gout Problem Notes None recorded. Procedures Surgical History Date Name Laterality Status Provider Name and Address Organization Details Recorded Time endoscopy completed Not Available [facility] 12/10/[facility]22 02:27:21 Imaging Results None recorded. Procedure Notes None recorded. Medical Equipment None Reported. Allergies No known drug allergies Medications Name Sig Start Date Stop Date Status Note LastModified by Organization Details LastModified Time testoster one cypionate 200mg/ml injection solution (2.5 ml) INJECT 0.5ML intramus cularly ONCE WEEKLY active Not Available Not Available No t Available cyclobenz aprine 10 mg tablet TAKE 1 TABLET BY MOUTH THREE TIMES A DAY NEEDED FOR MUSCLE SPASMS 08/31 completed PT REPORTS HE'S NOT TAKING, AT 08/31 APPT Not Available Not Available Not Available amoxicill in 500 mg capsule 06/28 completed Not Available Not Available Not Available atorvasta tin 40 mg tablet Take 1 tablet every day by oral route at bedtime for 30 days. active Not Available Not Available No t Available atorvasta tin 80 mg tablet TAKE 1 TABLET BY MOUTH EVERYDAY AT BEDTIME active Not Available Not Available No t Available prednison e 10 mg tablet Take 1 tablet every day by oral route as directed for 7 days. active Not Available Not Available No t Available clindamyc in HCl 300 mg capsule Take 1 capsule every 6 hours by oral route. active Not Available Not Available No t Available cetirizin e 10 mg tablet TAKE 1 TABLET BY MOUTH EVERY DAY NEEDED active Not Available Not Available No t Available azithromy jama 250 mg tablet TAKE 2 TABLETS BY MOUTH TODAY, THEN TAKE 1 TABLET DAILY FOR 4 DAYS 11/05 completed Not Available Not Available Not Available ibuprofen 800 mg tablet TK 1 T PO Q 6 H 05/16 completed Not Available Not Available Not Available benzonata te 200 mg capsule TAKE 1 CAPSULE BY MOUTH EVERY 8 HOURS NEEDED X7 DAYS 11/23 completed Not Available Not Available Not Available clarithro mycin 500 mg tablet TAKE 1 TABLET BY MOUTH EVERY 12 HOURS FOR 14 DAYS. active Not Available Not Available No t Available hydrocodo ne 5 mg-acetam inophen 325 mg tablet 11/28 completed Not Available Not Available Not Available prednison e 20 mg tablet 11/28 completed Not Available Not Available Not Available isosorbid e mononitra te ER 30 mg tablet,ex tended release 24 hr takes one daily 01/08 completed Not Available Not Available Not Available phentermi ne 15 mg capsule TAKE 2 CAPSULE EVERY DAY BY MOUTH BEFORE BREAKFAS T. active Not Available Not Available No t Available penicilli n V potassium 500 mg tablet 05/16 completed Not Available Not Available Not Available triamcino lone acetonide 0.5 % topical ointment APPLY TO AFFECTED AREA TWICE A DAY 11/05 completed Not Available Not Available Not Available acetamino phen 300 mg-codein e 30 mg tablet 10/15 completed Not Available Not Available Not Available allopurin ol 100 mg tablet Take 1 tablet every day by oral route as directed for 30 days. 10/27 completed Not Available Not Available Not Available omeprazol e 40 mg capsule,d elayed release TAKE 1 CAPSULE BY MOUTH EVERY DAY IN THE MORNING active Not Available Not Available No t Available aspirin 81 mg tablet,de layed release TAKE 1 TABLET BY MOUTH EVERY DAY WITH FOOD 07/25 completed Not Available Not Available Not Available tramadol 50 mg tablet 05/16 completed Not Available Not Available Not Available phentermi ne 30 mg capsule Take 1 capsule every day by oral route in the morning for 30 days. 08/31 completed PT REPORTS HE'S NOT TAKING, AT 08/31 APPT Not Available Not Available Not Available amoxicill in 500 mg tablet TAKE 2 TABLETS BY MOUTH TWICE A DAY FOR 14 DAYS. active Not Available Not Available No t Available Prevacid 30 mg capsule,d elayed release Take 1 capsule twice a day by oral route for 14 days. 07/04 completed Not Available Not Available Not Available amoxicill in 875 mg tablet Take 1 tablet every 12 hours by oral route. active Not Available Not Available No t Available benzonata te 100 mg capsule TK 1 C PO TID PRF COUGH 06/05 completed Not Available Not Available Not Available hydrocodo ne 7.5 mg-acetam inophen 325 mg tablet TAKE 1 TABLET BY MOUTH EVERY 6 8 HOURS NEEDED FOR PAIN 11/25 completed Not Available Not Available Not Available oseltamiv ir 75 mg capsule TAKE 1 CAPSULE BY MOUTH EVERY 12 HOURS FOR 5 DAYS 11/05 completed Not Available Not Available Not Available ranitidin e 150 mg tablet TAKE 1 TABLET BY MOUTH TWICE A DAY 10/27 completed Not Available Not Available Not Available prednison e 50 mg tablet 05/16 completed Not Available Not Available Not Available indometha jama 50 mg capsule Take 1 capsule every 8 hours by oral route as needed for 30 days. 08/31 completed PT REPORTS HE'S NOT TAKING, AT 08/31 APPT Not Available Not Available Not Available nitroglyc amy 0.4 mg sublingua l tablet take 1 tab SL as directed at onset of chest pain, may repeat in 15 min. if needed 12/24 completed Not Available Not Available Not Available omeprazol e 20 mg capsule,d elayed release TAKE 1 CAPSULE BY MOUTH EVERY DAY BEFORE A MEAL active Not Available Not Available No t Available codeine 10 mg-guaife nesin 100 mg/5 mL oral liquid Take 10 mL every 8 hours by oral route as needed for 7 days. active Not Available Not Available No t Available allopurin ol 300 mg tablet TAKE 1 TABLET BY MOUTH EVERY DAY 2024 active Not Available Not Available Not Avai lable lisinopri l 5 mg tablet TAKE 1 TABLET BY MOUTH EVERY DAY IN THE MORNING active Not Available Not Available No t Available ergocalci ferol (vitamin D2) 1,250 mcg (50,000 unit) capsule TAKE 1 CAPSULE BY MOUTH ONCE WEEKLY active Not Available Not Available No t Available levofloxa jama 750 mg tablet TAKE 1 TABLET BY MOUTH EVERY DAY DIRECTED FOR 7 DAYS 11/23 completed Not Available Not Available Not Available methylpre dnisolone 4 mg tablets in a dose pack TAKE 6 TABLETS ON DAY 1 DIRECTED ON PACKAGE AND DECREASE BY 1 TAB EACH DAY FOR A TOTAL OF 6 DAYS 01/03 completed Not Available Not Available Not Available albuterol sulfate HFA 90 mcg/actua tion aerosol inhaler INHALE 2 PUFFS BY MOUTH EVERY 4-6 HOURS NEEDED 08/31 completed PT REPORTS HE'S NOT TAKING, AT 08/31 APPT Not Available Not Available Not Available ondansetr on 4 mg disintegr ating tablet LET 1 TABLET DISSOLVE BY MOUTH ONCE EVERY 6 8 HOURS NEEDED active Not Available Not Available No t Available fluticaso ne propionat e 50 mcg/actua tion nasal spray,terry pension INSTILL 2 SPRAYS INTO THE NOSTRILS ONCE DAILY 08/31 completed PT REPORTS HE'S NOT TAKING, AT 08/31 APPT Not Available Not Available Not Available naproxen 500 mg tablet TAKE 1 TABLET BY MOUTH TWICE A DAY NEEDED FOR PAIN 11/05 completed Not Available Not Available Not Available diazepam 5 mg tablet TAKE 1 TABLET BY MOUTH THE EVENING BEFORE AND 1 TABLET 1 HOUR BEFORE PROCEDUR E 04/29 completed Not Available Not Available Not Available amoxicill in 875 mg-potass ium clavulana te 125 mg tablet 05/16 completed Not Available Not Available Not Available ezetimibe 10 mg tablet TAKE 1 TABLET BY MOUTH EVERY DAY IN THE MORNING 2024 active Not Available Not Available Not Avai lable rosuvasta tin 10 mg tablet TK 1 T PO QD 12/24 completed Not Available Not Available Not Available liragluti de (weight loss) 3 mg/0.5 mL (18 mg/3 mL) subcut pen injector Inject 0.6 mg every day by subcutan eous route as directed for 30 days. 08/31 completed PT REPORTS HE'S NOT TAKING, AT 08/31 APPT Not Available Not Available Not Available Voltaren Arthritis Pain 1 % topical gel APPLY 2 GRAMS TO THE AFFECTED AREA(S) dorsal midfoot BY TOPICAL ROUTE 4 TIMES PER DAY 2024 active Not Available Not Available Not Avai lable Wegovy 0.25 mg/0.5 mL subcutane ous pen injector INJECT THE CONTENTS OF 1 PEN UNDER THE SKIN ONCE WEEKLY 08/31 completed PT REPORTS HE'S NOT TAKING, AT 08/31 APPT Not Available Not Available Not Available Zepbound 2.5 mg/0.5 mL subcutane ous pen injector INJECT 2.5 MG SUBCUTAN EOUSLY WEEKLY DIRECTED 07/25 completed Not Available Not Available Not Available Vitals Date Recorded Body height Body mass index (BMI) Body weight Body temperature Heart rate Oxygen saturation Systolic And Diastolic Provider Name and Address Organization Details Last Updated DateTime 5 177.8 cm 47 kg/m2 809053. 85 g 98.2 [degF] 68 /min 92 % 130/84 mm[Hg] Kassidy Hoffman RN [place] [facility] [employer] 5 11:19:53 Date Recorded Body height Body mass index (BMI) Body weight Heart rate Respiratory rate Oxygen saturation Provider Name and Address Organization Details Last Updated DateTime 5 177.8 cm 46.9 kg/m2 066526. 7 g 78 /min 14 /min 99 % Patsy Espinal [facility] [employer] [facility] 10:03:33 Date Recorded Oxygen saturation Provider Name and Address Organization Details Last Updated DateTime 01/31/2025 95 % Sonja Pratt [address], [place], [address], [facility] [employer] [facility] 01/31/2025 16:27:38 Date Recorded Body height Body mass index (BMI) Body weight Body temperature Heart rate Systolic And Diastolic Provider Name and Address Organization Details Last Updated DateTime 177.8 cm 46 kg/m2 633753. 36 g 97.4 [degF] 73 /min 130/70 mm[Hg] Kassidy Hoffman RN [facility] 16:17:24 Date Recorded Body height Body mass index (BMI) Body weight Body temperature Oxygen saturation Heart rate Systolic And Diastolic Provider Name and Address Organization Details Last Updated DateTime 177.8 cm 43.8 kg/m2 563083. 37 g 98.4 [degF] 93 % 58 /min 140/70 mm[Hg] Kassidy Hoffman RN [facility] [employer] [facility] 10:59:47 Date Recorded Body height Body mass index (BMI) Body weight Body temperature Provider Name and Address Organization Details Last Updated DateTime 08/31/2025 177.8 cm 43 kg/m2 127416.91 g 97.5 [degF] Mariia Renteria RN [facility] [employer] [facility] 08/31/2025 14:13:14 Social History Question Answer Notes LastModified by Organizat ion Details LastModified Time Tobacco Smoking Status Never Smoker Not Available [employer] 12/10/2022 02:25:11 Do You Have An Advance Directive? No MIGRATION.17976 [id number] Information not available 12/10/2022 How Many Years Have You Consumed Alcohol? 20 [email or web address] Information not available 11/23/2024 What Is Your Level Of Caffeine Consumption? Moderate 4- 44oz Soda Pepsi Or Coke [email or web address] Information not available 11/23/2024 In The 14 Days Before Symptom Onset, Have You Had Close Contact With A Laboratory-confi rmed COVID-19 While That Case Was Ill? No MIGRATION.76337 05350 Information not available 12/10/2022 In The 14 Days Before Symptom Onset, Have You Had Close Contact With A Person Who Is Under Investigation For COVID-19 While That Person Was Ill? No MIGRATION.17387 28402 Information not available 12/10/2022 What Type Of Diet Are You Following? REGULAR MIGRATION.92418 51699 Information not available 12/10/2022 What Is The Highest Grade Or Level Of School You Have Completed Or The Highest Degree You Have Received? [id number] MIGRATION.21187 34255 Information not available 12/10/2022 Have There Been Any Changes To Your Family Or Social Situation? No MIGRATION.40375 53187 Information not available 12/10/2022 What Is The Fluoride Status Of Your Home? Unknown MIGRATION.59593 56353 Information not available 12/10/2022 Do You Use Insect Repellent Routinely? Yes MIGRATION.59044 67717 Information not available 12/10/2022 Where Do You Live? [place]House MIGRATION.22898 78371 Information not available 12/10/2022 Do You Have A Medical Power Of Dress Cap Maker? No MIGRATION.01722 78760 Information not available 12/10/2022 What Was The Date Of Your Most Recent Tobacco Screening? 01/30/2025 [email or web address] Information not available 01/30/2025 Have You Ever Been Counseled For Unhealthy Alcohol Use? No MIGRATION.20578 81891 Information not available 12/10/2022 Do You Have Any Pets? Yes MIGRATION.84906 69581 Information not available 12/10/2022 What Is Your Relationship Status? MIGRATION.39045 36541 Information not available 12/10/2022 Do You Use Your Seat Belt Or Car Seat Routinely? Yes MIGRATION.92594 90643 Information not available 12/10/2022 Do You Have Smoke And Carbon Monoxide Detectors In Your Home? Yes MIGRATION.53306 78436 Information not available 12/10/2022 Are You Passively Exposed To Smoke? No MIGRATION.88267 57349 Information not available 12/10/2022 Are There Any Smokers In Your House? No MIGRATION.26695 31848 Information not available 12/10/2022 Do You Participate In Social Media? Yes MIGRATION.68098 87192 Information not available 12/10/2022 Do You Use Sunscreen Routinely? Yes MIGRATION.60554 34491 Information not available 12/10/2022 Has Tobacco Cessation Counseling Been Provided? No MIGRATION.61067 97628 Information not available 12/10/2022 Have You Recently Traveled Abroad? No MIGRATION.92064 98480 Information not available 12/10/2022 Are You Currently In School? No MIGRATION.24927 90694 Information not available 12/10/2022 Do You Have Any Dietary Restrictions? No MIGRATION.20757 81416 Information not available 12/10/2022 Sex: Male Functional Status Question Answer Note LastModified by Organizat ion Details LastModified Time Do you use any illicit or recreational drugs? No MIGRATION.8473245 026 Information not available 12/10/2022 Do you or have you ever used any other forms of tobacco or nicotine? No MIGRATION.8888766 026 Information not available 12/10/2022 What is your level of alcohol consumption? 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 Occasional MIGRATION.1174269 026 Information not available 12/10/2022 Mental Status Question Answer Note LastModified by Organizat ion Details LastModified Time Do you feel stressed (tense, restless, nervous, or anxious, or unable to sleep at night)? [id number] MIGRATION.[id number] 6 Information not available 12/10/2022 Family History Relationship Description Onset Age of this Age Resolved Age Notes LastModified by Organization Details LastModified Time Father Obstructive sleep apnea syndrome [email or web address] Not available 08/13 14:05:41 Father Family history of malignant neoplasm skin that effect ed lymph nodes [email or web address] Not available 08/31/2025 14:05:41 Father Diabetes mellitus [email or web address] Not available 2024 10:12:07 Father Hypertensive disorder [email or web address] Not available 2024 10:12:15 Notes:SISTER: SINUS SURGERY Medical History Condition Response ENT Y Past Encounters Encounter ID Performer Location Encounter Start Date Encounter Closed Date Diagnosis/Indication Diagnosis SNOMED-CT Code Diagnosis ICD10 Code Diagnosis IMO Codes Diagnosis Note [id number] Luis Chris MD [facility] [place] [address]384[address] 1 12/12/2020 00:00:00 12/12/2020 14:06:37 [id number] Luis Chris MD [address] [place] [address] 12/24/2020 00:00:00 12/24/2020 09:38:04 [id number] Luis Chris MD [address] [address] 02/13/2021 00:00:00 02/13/2021 16:47:03 [id number] Chong De León MD [address] [address] 04/29/2021 00:00:00 04/29/2021 12:52:35 [id number] Luis Chris MD [address] [address] 11/25/2021 00:00:00 11/25/2021 10:36:44 [id number] Luis Chris MD [address] [address] 12/09/2021 00:00:00 12/09/2021 10:38:37 [id number] Luis Chris MD [address] [address] 1 08/13/2022 00:00:00 08/13/2022 18:01:01 [id number] Luis Chris MD [address] [address] 11/05/2023 14:42:24 11/05/2023 15:21:22 Seen in emergency clinic 628033311 Z76.89 Cough 52781780 R05.9 Bronchitis 70582434 J40 Fatigue 15082703 R53.83 Obesity 981132623 E66.9 History of influenza 789 022013 Z87.09 [id number] Luis Chris MD [address] [address] 11/23/2024 10:27:10 11/23/2024 11:12:21 Adult health examination 141002839 Z00.00 Fatigue 53129768 R53.83 Gout 27471218 M10.9 Vitamin D deficiency 347 19695 E55.9 Morbid obesity 588651541 E66.01 Gastroesop hageal reflux disease without esophagitis 623219195 K21.9 [id number] Luis Chris MD [address] [address] 12/15/2024 16:07:06 12/15/2024 17:06:33 Fatigue 74112841 R53.83 Gout 73243049 M10.9 Gastroesop hageal reflux disease without esophagitis 786112995 K21.9 Vitamin D deficiency 347 31207 E55.9 Morbid obesity 855442652 E66.01 Hyperlipidemia 00570657 E78.5 Hypertriglyceridemia 302 287875 E78.2 [id number] Luis Chris MD [address] [address] 01/03/2025 11:08:17 01/03/2025 11:50:28 Pain in right foot 3771586569 53210 M79.671 Chronic Gout 49858196 M10.9 Morbid obesity 906199162 E66.01 [id number] Basil Cordero DPM [facility] Podiatry Arjun Rodriguez [address] [place] [address] 01/30/2025 09:55:59 02/01/2025 08:28:27 Pain in bilateral feet 5213804375 5544632 M79.671 M79.672 educated on conditionx -rays reviewed with the patientMin styles therapyOff loading reviewedfo llow-up 2 weeks Tendinitis of foot 77794 2007 M77.51 M77.52 shoe lacing modificati on reviewed with the patientMin e therapyRx topical Voltaren gel Gout 07967959 M10.9 uric acid-- 11/25/2021 -- 7.4educate d on goutcontin ue allopurino l- educated on side effects of NSAIDsgout diet reviewedre peat lab work if continues to develop flares Bilateral bone spur of calcaneum 2519169659 5345986 M77.31 M77.32 educated on conditionr ecommend stretching daily [id number] Luis Chris MD [address] [address] 01/31/2025 16:07:49 01/31/2025 16:30:24 Gout 04919400 M10.9 Hyperlipidemia 00071142 E78.5 Fatigue 58944704 R53.83 Gastroesop hageal reflux disease without esophagitis 886034227 K21.9 Vitamin D deficiency 347 24432 E55.9 Morbid obesity 721169395 E66.01 Hypertriglyceridemia 302 690383 E78.2 [id number] Luis Chris MD [address] [address] 07/25/2025 10:41:26 07/25/2025 11:22:29 Hyperlipidemia 52871520 E78.5 Hypertriglyceridemia 302 195710 E78.2 Gout 57075313 M10.9 Fatigue 58671254 R53.83 Gastroesop hageal reflux disease without esophagitis 881782393 K21.9 Vitamin D deficiency 347 85484 E55.9 Morbid obesity 392484772 E66.01 Benign hypertension 1072 5009 I10 977301 Recurrent bleeding of nose 8905750051 102 R04.0 98318440 Obstructiv e sleep apnea syndrome 10312868 G47.33 7917553 [id number] Shine Mills MD [facility] ENT [place] [address] [place] [address] 08/31/2025 14:02:08 09/01/2025 09:51:57 Anterior epistaxis 984617645 R04.0 05134311 Health Concerns Section Related Observation LastModified by Organization Detai ls LastModified Time None Recorded Concern Status LastModified by Organization Details LastModified Time None Recorded Advance Directives Directive N: Payers Insurance Date Sequence Insurance Name Policy Number Policy Velasquez Covered Member ID Velasquez Member ID Guarantor Name 08/31/2025 1 [facility] (PP[facility]) [id number] Kade Munoz [id number] Kade Munoz 08/31/2025 1 [facility] ON OR AFTER 04/11/21 (MEDICAID REPLACEMENT - HMO) Kade Munoz [id number] Kade Munoz Notes Date Note Type Note Provider Name and Address Organization Details Recorded Time 01/03/2025 text/html ACV: C/o Rt middle dorsal foot area pain for last couple months. Its much better than before. No more redness/swelling after the last steroid course. No other concern. Pt has been seen at and ED for this pain few times in last couple yrs. Pt has never seen any [facility] for this yet. Luis Chris MD [address], [place], [address], [email or web address] 01/03/2025 11:35:29 01/30/2025 text/html . Patient is a 39-year-old male who presents the office with complaints of right foot pain. Patient states he can comfortably walk 2-4 blocks without pain. Patient states his pain level 7/10 he describes it as stabbing, throbbing, sharp and intermittent in nature. Patient states rest does help. Patient states he also has been taking anti-inflammatories for this condition. Patient states he has not had any recent injury. Basil Cordero DPM [address], [place], [address], [email or web address] 01/30/2025 10:53:54 01/31/2025 text/html Pt is here for f/u on his meds and chronic conditions. Doing overall well. Denies any problem with meds. Denies any new concern. Happy with Phentermine results. So far, 14 lbs wt loss on it. Pt's insurance doesn't cover any other wt loss med. Pt not taking any Rx meds for last year. Pt says he had some issues with his insurance. Pt is f/u with [facility] for his chronic b/l feet pain. Luis hCris MD [address], [address], [place], [address], [email or web address] 01/31/2025 16:29:51 07/25/2025 text/html Pt is here for f/u on his labs, meds and chronic conditions. Doing overall well. Denies any problem with meds. Pt has not gone for labs yet. Last visit in 02/03. C/o chronic on/off epistaxis for last several years. Pt has never seen any ENT for a long time. Happy with Phentermine results. So far, 29 lbs wt loss on it. Pt's insurance doesn't cover any other wt loss med. Pt not taking any Rx meds for last year. Pt says he had some issues with his insurance. Pt is f/u with [facility] for his chronic b/l feet pain. Luis Chris MD [address], [place], [address], [email or web address] 07/25/2025 11:38:43 08/31/2025 text/html the patient has had a lifetime of epistaxis. This has been bilateral. No treatment has been done. There is no history of hemorrhagic hereditary telangiectasia Shine Mills MD [address], [address], [place], [address], [email or web address] 08/31/2025 14:30:34
--- OUTSIDE RECORDS SUMMARY | 2025-10-08 20:29 | XMS_ITS | Data Portability ---
[facility] Address [address] [place] [address] Assessment No assessment recorded. Plan of Treatment Reminders Order Date Submit Date Provider Last Modified By Organization Details Last Modified Time Details Appointments None recorded. Lab uric acid, serum or plasma 2014 016 asavala [facility], [address], [address], [place], [address], 6 09:43:13 lipid panel, serum 2014 016 asavala [facility], [address], [address], [place], [address], 6 09:44:28 hepatic function panel, serum 2014 016 asavala [facility], [address], [address], [place], [address], 6 09:45:31 hepatitis B surface Ab, qualitative , serum 2014 016 asavala [facility], [address], [address], [place], [address], 6 09:44:08 hepatitis C Ab, signal-to-c utoff, serum or plasma 2014 016 asavala [facility], [address], [address], [place], [address], 6 09:43:52 HBsAg (hepatitis B surface Ag), EIA, serum 2014 016 asavala [facility], [address] [facility], [address], [place], [address], 6 09:43:34 glucose tolerance test, 2-hour 2014 016 asavala [facility], [address], [address], [place], [address], 6 09:44:59 HbA1c (hemoglobin A1c), blood 2014 016 asavala [facility], [address] [facility] [facility], [address], [place], [address], 6 09:44:44 thyroid panel, serum 2014 016 asavala [facility], [address] [facility], [address], [place], [address], 6 09:42:27 Referral sleep medicine referral - Please evaluate for possible BENI 2014 016 afia Betts MD, [address], [place], [address], 6 14:59:03 Procedures None recorded. Surgeries None recorded. Imaging ultrasound, liver - Elevated transaminas es 2014 015 [facility] ([facility]), [address], [place], [address], 6 09:45:38 Medication Orders None recorded. Patient TargetsNo targets recorded. Patient Instructions Encounter Date Encounter Id Patient Instructions Last Modified By Organization Details Last Modified Time 09/14/2015 [id number] influenza (flu) vaccine: care instructions [email or web address] Not available 09/14/2015 16:09:42 high cholesterol : care instructions [email or web address] Not available 09/14/2015 15:53:31 A low CHO, low saturated fat diet was discussed Labs (2012 & 2014) were discussed in detail and clear instructions were given to the patient regarding the lifestyle changes needed. [email or web address] Not available 09/14/2015 15:53:31 Reason for Referral Please evaluate for possible BENI Referring Physician: Devang Umana, Internal Medicine, Encounter Date: 09/14/2015 Problems Name Problem SNOMED Code Status Onset Date Resolution Date Notes Provider Name and Address Organization Details Recorded Time Increased liver function 33362604 Active Devang Umana MD Attn: Sofia nuñez,[address] [facility], [place], [place], [address] [place] [address], [place] - [facility] 5 15:53:30 Impaired fasting glycemia 308878530 Active Devang Umana MD Attn: Sofia g,[address] [place], [place], [address] [place] [address], [place] [facility] 5 15:53:30 Hyperuricemia 01586324 Active Devang Umana MD Attn: Sofia g,[address] [place], [place], [address] [place] [address], [place] [facility] 5 15:53:30 Pure hypercholester olemia 166765823 Active Devang Umana MD Attn: Sofia g,[address] [facility], [place], [place], [address] [place] [address], [place] - [facility] 5 15:53:30 Apnea 0057516 Active Devang Umana MD Attn: Sofia nuñez,[address] [facility], [place], [place], [address] [place] [address], [place] - [facility] 5 15:53:30 Problem Notes None recorded. Medical Equipment None Reported. Allergies No known drug allergies Medications Name Sig Start Date Stop Date Status Note LastModified by Organization Details LastModified Time amoxicillin 875 mg-potassium clavulanate 125 mg tablet 2014 completed Not Available Not Available Not Available Vitals Date Recorded Respiratory rate Body weight Body height Body temperature Heart rate Body mass index (BMI) Systolic And Diastolic Provider Name and Address Organization Details Last Updated DateTime 5 20 /min 252147. 53515 g 179.07 cm 98.1 [degF] 74 /min 44 kg/m2 132/70 mm[Hg] January JER Butcher [place] - [facility] 5 14:14:32 Social History Question Answer Notes LastModified by Organizat ion Details LastModified Time Tobacco Smoking Status Never Smoker January JER Butcher null, [place] - [facility] 09/14/2015 14:14:32 Do You Have An Advance Directive? No Information not available 09/14/2015 What Is Your Level Of Caffeine Consumption? Heavy Information not available 09/14/2015 How Much Tobacco Do You Chew? None Information not available 09/14/2015 Education 12 Information no t available 09/14/2015 Are There Any Guns Present In Your Home? No Information not available 09/14/2015 Hard Of Hearing Or Deaf In One Or Both Ears? No Information not available 09/14/2015 Legally Blind In One Or Both Eyes? No Information not available 09/14/2015 Marital Status Informatio n not available 09/14/2015 Performs Monthly Self-breast Exam? No Information not available 09/14/2015 Seat Belts Used Routinely Yes Information not available 09/14/2015 Smoke Alarm In Home Yes Information not available 09/14/2015 How Much Tobacco Do You Smoke? No Information not available 09/14/2015 General Stress Level Medium Information not available 09/14/2015 Do You Use Sunscreen Routinely? No Information not available 09/14/2015 Sex: Unknown Functional Status Question Answer Note LastModified by Organizat ion Details LastModified Time What is your level of alcohol consumption? 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 Family History Relationship Description Onset Age of this Age Resolved Age Notes LastModified by Organization Details LastModified Time Father Diabetes mellitus asavala Not available 2014 14:14:32 Father Hypertensive disorder asavala Not available 2014 14:14:32 Father Disorder of thyroid gland asavala Not available 2014 14:14:32 Father Chronic obstructive pulmonary disease asavala Not available 2014 14:14:32 Medical History Condition Response Coronary Artery Disease N Other N Atrial Fibrillation N High Blood Pressure N Depression N COPD N Blood Clots N Anxiety Disorder N Muscle, Joint, or Bone Problems N Acid Reflux (GERD) N Cancer N Stroke N High Cholesterol Y Liver Disease N Headaches N Kidney or Bladder Problems N Thyroid Problems N GI Problems N Skin Problems N Anemia N Heart Attack ([place]) N Diabetes N Seizures/Epilepsy N Asthma N Allergies N Hepatitis N Heart Failure N Osteoporosis N Immunizations Vaccine Type Date Status Note Provider Nam e and Address Organization Details Recorded Time Tdap 5 completed Not Available [facility] 10/29/2019 02:31:10 Influenza, split virus, quadrivalent, preservative 5 completed Not Available [facility] 10/29/2019 02:32:11 Past Encounters Encounter ID Performer Location Encounter Start Date Encounter Closed Date Diagnosis/Indication Diagnosis SNOMED-CT Code Diagnosis ICD10 Code Diagnosis IMO Codes Diagnosis Note [id number] Devang Umana MD [facility] (Adult Med) [address] [place] [address] 09/14/2015 13:55:09 09/14/2015 17:54:02 Administration of influenza vaccine 91464262 Z23 Active or passive immunization 066994318 Z23 General ex amination of patient 421463260 Z00.01 30 y/o WM who was last seen 08/04/2013 , he had a routine physical exam done and he was advised of his abnormal labs. Increased liver function 35515637 R94.5 Impaired f asting glycemia 587065105 R73.01 Hyperuricemia 19712022 E 79.0 Low purine diet Pure hypercholesterolemia 484585842 E78.0 Apnea 2808871 R06.81 He snores, he has apneic episodes and his BMI is 44 Health Concerns Section Related Observation LastModified by Organization Detai ls LastModified Time None Recorded Concern Status LastModified by Organization Details LastModified Time None Recorded Advance Directives Directive N: Payers Insurance Date Sequence Insurance Name Policy Number Policy Velasquez Covered Member ID Velasquez Member ID Guarantor Name 10/30/2015 1 [facility] (MEDICAID HMO) [id number] Kade Gibson [id number] Kade Gibson Notes Date Note Type Note Provider Name and Address Organization Details Recorded Time 09/14/2015 text/html CoughReported by PatientHPIFor quality, patient reportsharsh. For severity, patient reportsmild. For duration, patient reportssymptoms lasting over 2 weeks. For timing, patient reportsbetter. For context, patient reportsnon-smoker. For modifying factors, patient reportsotc medicationandinhaler. For associated symptoms, patient reportsno fever,no chills,no chest pain,no heartburn,no nausea,no vomiting,no edema,no agitation,no wheezing, andno post nasal drip. Devang Umana MD Attn: [address] [place], [address], [facility] 09/14/2015 15:53:46
--- OUTSIDE RECORDS SUMMARY | 2025-10-08 20:29 | XMS_ITS | Continuity of Care Document ---
Author Organization [place] - [facility], [facility] Address [address] [place] [address] Care Team Providers Care Blasting Contract Miner Name Role Phone LUIS CHRIS Primary Care Provider LUIS CHRIS Referring Provider LUIS CHRIS Primary Care Provider Assessment Encounter Date Assessment Date Assessment LastModified by Organization Details LastModified Time 07/25/2025 07/25/2025 40 yo M with - [...] ENT as per schedule. Cont f/u with Disease Education Specialist as per schedule. Cont f/u with GI as per schedule. Cont f/u with Cardio as per schedule. Cont f/u with Ophtho as per schedule. Offered to refer to [facility]t loss clinic; but pt declined. Zepbound was not covered with his insurance. HM: EGD - 06/04/20, H pylori gastritis ++. Cont f/u with GI as per their recommendations . Flu - Pt declined. Tdap - Pt declined. F/u in 1 month. Lipids, uric acid before next visit. Annual labs in 12/07. [email or web address] Not available 07/25/2025 11:38:28 Plan of Treatment Reminders Order Date Submit Date Provider Last Modified By Organization Details Last Modified Time Details Appointments None recorded. Lab uric acid, serum or plasma [address] (Lab), [address] [place], [address], 16:29:01 lipid panel, serum [address] (Lab), [address] [place], [address], 16:29:01 Referral ENT surgery referral - Please call patient to schedule an appointmen t. Thank you 2024 CARY Mills MD, [address], [place], [address], 13:01:03 Procedures None recorded. Surgeries None recorded. Imaging None recorded. Medication Orders allopurino l 300 mg tablet 2024 [facility]/Pharmacy #[id number], [address], [place], [address], 11:10:45 ezetimibe 10 mg tablet 2024 [id number], [address], [place], [address], 11:11:30 lisinopril 5 mg tablet 2024 [id number], [address], [place], [address], 11:10:48 phentermin e 30 mg capsule [email or web address] [id number], [address], [place], [address], 14:15:51 atorvastat in 80 mg tablet 2024 [id number], [address], [place], [address], 11:10:55 Wegovy 0.25 mg/0.5 mL subcutaneo us pen injector [email or web address]/Pharmacy #[id number], [address], [place], [address], 14:16:00 ergocalcif alley (vitamin D2) 1,250 mcg (50,000 unit) capsule 2024 [facility] #[id number], [address], [place], [address], 11:10:53 omeprazole 40 mg capsule,de layed release 2024 [facility] #[id number], [address] [place], [address], 5 11:10:58 Patient TargetsNo targets recorded. Patient Instructions Encounter Date Encounter Id Patient Instructions Last Modified By Organization Details Last Modified Time 07/25/2025 [id number] high blood pressure: care instructions [email or web address] Not available 07/25/2025 11:38:17 When You Want to Lose Weight: Care Instructions [email or web address] Not available 07/25/2025 11:38:17 Reason for Referral ENT Surgery Referral for Rec urrent bleeding of nose Please call patient to schedule an appointment. Thank you Referring Physician: Luis Chris, [facility], Encounter Date: 07/25/2025 Problems Name Problem SNOMED Code Status Onset Date Resolution Date Notes Provider Name and Address Organization Details Recorded Time Hyperchol esterolem ia 34027160 Completed Not Available [facility] 3 02:29:45 Angina pectoris 836760529 Active Not Available [facility] 3 02:29:45 Gastroeso phageal reflux disease without esophagit is 961117743 Active 2018 Luis Chris MD [address], [place], [address] , [employer] 5 10:50:23 Chronic low back pain 295499766 Active 2018 Not Available [employer] 3 02:29:45 Chest pain 72388223 Active 2018 Not Available [facility] 3 02:29:45 Dysphagia 93663276 Active 2018 Not Available [facility] 3 02:29:45 Hyperlipi demia 46064211 Active 2018 Luis Chris MD [address], [place], [address] , [employer] 5 10:50:23 Daytime hypersomn ia 41437657260 102 Active 2018 Not Available [facility] 3 02:29:45 Vitamin D deficienc y 87539752 Active 2018 Luis Chris MD [address], [address], [place], [address] , [facility] [email or web address] [facility] [employer] 5 10:50:23 Gout 78820710 Active 2018 Luis Chris MD [address], [place], [address] , [facility] [email or web address] [facility] [employer] 5 10:50:23 Obstructi ve sleep apnea syndrome 58627263 Active 2019 Luis Chris MD [address], [place], [address] , [facility] [email or web address] [facility] [employer] [employer] [facility] 5 11:36:47 Right upper quadrant pain 383044605 Active 2019 Not Available [employer] 3 02:29:45 Seasonal allergic rhinitis 489166177 Active 2019 Not Available [employer] 3 02:29:[address] pylori-as sociated gastritis 025135255 Active 2019 Not Available [employer] 3 02:29:46 Fatigue 90372157 Active 2019 Luis Chris MD [address], [place], [address] , [employer] [facility] [employer] 5 10:50:23 Complaini ng of erectile dysfuncti on Active 2020 Not Available [employer] 3 02:29:45 Hypertens enrique disorder 17734711 Active 2020 Not Available [employer] 3 02:29:45 Adult health examinati on Active 2021 Not Available [employer] 3 02:29:45 Cough 27074612 Active 2023 Luis Chris MD [address], [address], [place], [address] , [facility] [email or web address] [facility] [employer] 4 14:45:40 Bronchiti s 20734253 Active 2023 Luis Chris MD [address], [place], [address] , [facility] [employer] 4 14:45:46 History of influenza 992326543 Active 2023 Luis Chris MD [address] [employer], [place], [address] , [employer] [facility] [employer] [facility] 4 15:04:33 Morbid obesity 543984537 Active 2024 Luis Chris MD [address] [employer], [place], [address] , [employer] [facility] [employer] [facility] 5 10:50:23 Hypertrig lyceridem ia 697489202 Active 2024 Luis Chris MD [address], [employer], [place], [address] , [employer] [facility] [employer] [facility] 5 10:50:23 Pain in right foot 06770320159 9107 Active 2024 Luis Chris MD [address] [employer], [employer], [place], [address] , [employer] [facility] [employer] [facility] 5 11:22:38 Pain in bilateral feet 57589817384 301259 Active 2024 Basil Cordero DPM [address] [address], [place], [address] , [employer] [facility] [employer] [facility] 5 10:46:21 Tendiniti s of foot 056851021 Active 2024 Basil Cordero DPM [address], [address] [address], [place], [address] , [employer] [facility] [employer] [facility] 5 10:48:19 Bilateral bone spur of calcaneum 29230697311 978335 Active 2024 Basil Cordero DPM [address], [employer], [place], [address] , [employer] [facility] [employer] [facility] 5 10:52:40 Benign hypertens ion 69166213 Active 2024 Luis Chris MD [address] [employer], [place], [address] , [facility] 5 11:09:29 Recurrent bleeding of nose Active 2024 Luis Chris MD [address] [facility], [facility] [address], [place], [address] , [facility] 5 11:11:23 Anterior epistaxis 127648215 Active 2024 Shine Mills MD [address] [facility], [facility] [address], [place], [address] , [facility] [employer] [facility] 5 14:29:59 Notes:Medical History: Rhini tis Obesity with mod OSAHS, AHI = 27, 12/10/20, on CPAP c/o IVRC Hypertension Hyperlipidemia H. pylori gastritis [facility] Vit D deficiency Low back pain Gout Problem Notes None recorded. Procedures Surgical History Date Name Laterality Status Provider Name and Address Organization Details Recorded Time endoscopy completed Not Available [facility] 0 12/10/2022 02:27:21 Imaging Results None recorded. [...] Last Updated DateTime 177.8 cm 43.8 kg/m2 452719. 37 g 98.4 [degF] 93 % 58 /min 140/70 mm[Hg] Kassidy Hoffman RN [place] [facility] 10:59:47 Social History Question Answer Notes LastModified by Organizat ion Details LastModified Time Tobacco Smoking Status Never Smoker Not Available [employer] 12/10/2022 02:25:11 Do You Have An Advance Directive? No MIGRATION.29315 85985 Information not available 12/10/2022 How Many Years Have You Consumed Alcohol? 20 [email or web address] Information not available 11/23/2024 What Is Your Level Of Caffeine Consumption? Moderate 4- 44oz Soda Pepsi Or Coke Information not available 11/23/2024 In The 14 Days Before Symptom Onset, Have You Had Close Contact With A Laboratory-confi rmed COVID-19 While That Case Was Ill? No MIGRATION.74428 68166 Information not available 12/10/2022 In The 14 Days Before Symptom Onset, Have You Had Close Contact With A Person Who Is Under Investigation For COVID-19 While That Person Was Ill? No MIGRATION.95736 17075 Information not available 12/10/2022 What Type Of Diet Are You Following? REGULAR MIGRATION.36291 90436 Information not available 12/10/2022 What Is The Highest Grade Or Level Of School You Have Completed Or The Highest Degree You Have Received? RI43271-7 MIGRATION.81277 94654 Information not available 12/10/2022 Have There Been Any Changes To Your Family Or Social Situation? No MIGRATION.02464 33395 Information not available 12/10/2022 What Is The Fluoride Status Of Your Home? Unknown MIGRATION.61230 46659 Information not available 12/10/2022 Do You Use Insect Repellent Routinely? Yes MIGRATION.91924 25907 Information not available 12/10/2022 Where Do You Live? [place] MIGRATION.78860 95705 Information not available 12/10/2022 Do You Have A Medical Power Of Tower Erector Helper? No MIGRATION.16266 85960 Information not available 12/10/2022 What Was The Date Of Your Most Recent Tobacco Screening? 01/30/2025 [email or web address] Information not available 01/30/2025 Have You Ever Been Counseled For Unhealthy Alcohol Use? No MIGRATION.90103 66632 Information not available 12/10/2022 Do You Have Any Pets? Yes MIGRATION.50257 61026 Information not available 12/10/2022 What Is Your Relationship Status? MIGRATION.19602 98520 Information not available 12/10/2022 Do You Use Your Seat Belt Or Car Seat Routinely? Yes MIGRATION.09231 32713 Information not available 12/10/2022 Do You Have Smoke And Carbon Monoxide Detectors In Your Home? Yes MIGRATION.72954 28331 Information not available 12/10/2022 Are You Passively Exposed To Smoke? No MIGRATION.51300 25253 Information not available 12/10/2022 Are There Any Smokers In Your House? No MIGRATION.47766 03448 Information not available 12/10/2022 Do You Participate In Social Media? Yes MIGRATION.13091 97898 Information not available 12/10/2022 Do You Use Sunscreen Routinely? Yes MIGRATION.15457 57439 Information not available 12/10/2022 Has Tobacco Cessation Counseling Been Provided? No MIGRATION.80562 34379 Information not available 12/10/2022 Have You Recently Traveled Abroad? No MIGRATION.25881 63659 Information not available 12/10/2022 Are You Currently In School? No MIGRATION.74423 92673 Information not available 12/10/2022 Do You Have Any Dietary Restrictions? No MIGRATION.20945 07081 Information not available 12/10/2022 Sex: Male Functional Status Question Answer Note LastModified by Organizat ion Details LastModified Time Do you use any illicit or recreational drugs? No MIGRATION.3642561 026 Information not available 12/10/2022 Do you or have you ever used any other forms of tobacco or nicotine? No MIGRATION.4904887 026 Information not available 12/10/2022 What is your level of alcohol consumption? 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 Occasional MIGRATION.1696340 026 Information not available 12/10/2022 Mental Status Question Answer Note LastModified by Organizat ion Details LastModified Time Do you feel stressed (tense, restless, nervous, or anxious, or unable to sleep at night)? HB3903-8 MIGRATION.[id number] 6 Information not available 12/10/2022 Family History Relationship Description Onset Age of this Age Resolved Age Notes LastModified by Organization Details LastModified Time Father Obstructive sleep apnea syndrome [email or web address] Not available 08/13 14:05:41 Father Family history of malignant neoplasm skin that effect ed lymph nodes [email or web address] Not available 08/31/2025 14:05:41 Father Diabetes mellitus [email or web address] Not available 2024 10:12:07 Father Hypertensive disorder [email or web address] Not available 2024 10:12:15 Notes:SISTER: SINUS SURGERY Medical History Condition Response ENT Y Past Encounters Encounter ID Performer Location Encounter Start Date Encounter Closed Date Diagnosis/Indication Diagnosis SNOMED-CT Code Diagnosis ICD10 Code Diagnosis IMO Codes Diagnosis Note [id number] Luis Chris MD [facility] [address] [address] 07/25/2025 10:41:26 07/25/2025 11:22:29 Hyperlipidemia 06357917 E78.5 Hypertriglyceridemia 302 529258 E78.2 Gout 26839160 M10.9 Fatigue 34429287 R53.83 Gastroesop hageal reflux disease without esophagitis 237672458 K21.9 Vitamin D deficiency 347 70780 E55.9 Morbid obesity 289915970 E66.01 Benign hypertension 1072 5009 I10 241163 Recurrent bleeding of nose 2382100446 102 R04.0 91633020 Obstructiv e sleep apnea syndrome 86400805 G47.33 [id number] Health Concerns Section Related Observation LastModified by Organization Detai ls LastModified Time None Recorded Concern Status LastModified by Organization Details LastModified Time None Recorded Payers Encounter Date Sequence Insurance Name Policy Number Policy Velasquez Covered Member ID Velasquez Member ID Guarantor Name 07/25/2025 1 [facility] [id number] Kade Munoz [id number] Kade Munoz Notes Date Note Type Note Provider Name and Address Organization Details Recorded Time 07/25/2025 text/html Pt is here for f/u [...] with his insurance. Pt is f/u with Disease Education Specialist for his chronic b/l feet pain. Luis Chris MD [address] [place] [address], [address] [address], [place], [address], [place] [facility] [employer] 07/25/2025 11:38:43
--- OUTSIDE RECORDS SUMMARY | 2025-10-08 20:29 | XMS_ITS | Continuity of Care Document ---
Author Organization [facility], [facility] [place] Address [address] [place] [address] Care Team Providers Care Packaging Mechanic Name Role Phone LUIS HCRIS Primary Care Provider LUIS CHRIS Referring Provider [facility] Primary Care Provider [phone] Assessment No assessment recorded. Plan of Treatment Reminders Order Date Submit Date Provider Last Modified By Organization Details Last Modified Time Details Appointments None recorded. Lab None recorded. Referral None recorded. Procedures nasal cautery (PROC) 025 025 [email or web address] Not available 5 09:46:17 Surgeries None recorded. Imaging None recorded. Medication Orders None recorded. Patient TargetsNo targets recorded. Patient InstructionsNo instructions recorded. Reason for Referral None Reported. Problems Name Problem SNOMED Code Status Onset Date Resolution Date Notes Provider Name and Address Organization Details Recorded Time Hyperchol esterolem ia 30258507 Completed Not Available [facility] 3 02:29:45 Angina pectoris 063942481 Active Not Available [facility] 3 02:29:45 Gastroeso phageal reflux disease without esophagit is 632005112 Active 2018 Luis Chris MD [facility] [address] [facility] [address], [place], [address] , [facility] [employer] 5 10:50:23 Chronic low back pain 052543866 Active 2018 Not Available [facility] 3 02:29:45 Chest pain 41544727 Active 2018 Not Available [facility] 3 02:29:45 Dysphagia 77479082 Active 2018 Not Available [facility] 3 02:29:45 Hyperlipi demia 75948037 Active 2018 Luis Chris MD [address], [place], [address] , [employer] [facility] [employer] [facility] 5 10:50:23 Daytime hypersomn ia 88628018069 102 Active 2018 Not Available [facility] 3 02:29:45 Vitamin D deficienc y 30069358 Active 2018 Luis Chris MD [address], [place], [address] , [employer] [facility] 5 10:50:23 Gout 64005470 Active 2018 Luis Chris MD [address], [place], [address] , [employer] [facility] 5 10:50:23 Obstructi ve sleep apnea syndrome 88069274 Active 2019 Luis Chris MD [address], [place], [address] , [employer] [facility] 5 11:36:47 Right upper quadrant pain 788437115 Active 2019 Not Available [facility] 3 02:29:45 Seasonal allergic rhinitis 940181752 Active 2019 Not Available [facility] 3 02:29:[address] pylori-as sociated gastritis 578318989 Active 2019 Not Available [facility] 3 02:29:46 Fatigue 66268897 Active 2019 Luis Chris MD [address], [place], [address] , [employer] [facility] [employer] [facility] 5 10:50:23 Complaini ng of erectile dysfuncti on Active 2020 Not Available [facility] 3 02:29:45 Hypertens enrique disorder 61739202 Active 2020 Not Available [facility] 3 02:29:45 Adult health examinati on Active 2021 Not Available [facility] 3 02:29:45 Cough 43014823 Active 2023 Luis Chris MD [address], [place], [address] , [address] 4 14:45:40 Bronchiti s 19928927 Active 2023 Luis Chris MD [address], [place], [address] , [address] 4 14:45:46 History of influenza 446275632 Active 2023 Luis Chris MD [address], [place], [address] , [address] 4 15:04:33 Morbid obesity 839692980 Active 2024 Luis Chris MD [address], [place], [address] , [address] 5 10:50:23 Hypertrig lyceridem ia 822022439 Active 2024 Luis Chris MD [address], [place], [address] , [address] 5 10:50:23 Pain in right foot 98686490505 9107 Active 2024 Luis Chris MD [address], [place], [address] , [address] 5 11:22:38 Pain in bilateral feet 88724778961 209045 Active 2024 Basil Cordero DPM [address], [place], [address] , [address] 5 10:46:21 Tendiniti s of foot 379258639 Active 2024 Basil Cordero DPM [address], [place], [address] , [facility] 5 10:48:19 Bilateral bone spur of calcaneum 31122155608 284062 Active 2024 Basil Cordero DPM [address], [place], [address] , [facility] 5 10:52:40 Benign hypertens ion 16152656 Active 2024 Luis Chris MD [address], [place], [address] , [facility] 5 11:09:29 Recurrent bleeding of nose Active 2024 Luis Chris MD [address], [place], [address] , [facility] 5 11:11:23 Anterior epistaxis 532708721 Active 2024 Shine Mills MD [address], [place], [address] , [facility] 5 14:29:59 Notes:Medical History: Rhini tis Obesity with mod OSAHS, AHI = 27, 12/10/20, on CPAP c/o IVRC Hypertension Hyperlipidemia H. pylori gastritis FIL[facility]O ED Vit D deficiency Low back pain Gout Problem Notes None recorded. Procedures Surgical History Date Name Laterality Status Provider Name and Address Organization Details Recorded Time endoscopy completed Not Available [facility] 0 12/10/2022 02:27:21 Imaging Results None recorded. [...] completed PT REPORTS HE'S NOT TAKING, AT 11/20 APPT Not Available Not Available Not Available [...] Updated DateTime 08/31/2025 177.8 cm 43 kg/m2 648674.91 g 97.5 [degF] Mariia Renteria RN [place] [employer] 08/31/2025 14:13:14 Social History Question Answer Notes LastModified by Organizat ion Details LastModified Time Tobacco Smoking Status Never Smoker Not Available [facility] 12/10/2022 02:25:11 Do You Have An Advance Directive? No MIGRATION.[id number] [id number] Information not available 12/10/2022 How Many Years Have You Consumed Alcohol? 20 Information not available 11/23/2024 What Is Your Level Of Caffeine Consumption? Moderate 4- 44oz Soda Pepsi Or Coke Information not available 11/23/2024 In The 14 Days Before Symptom Onset, Have You Had Close Contact With A Laboratory-brandani ed COVID-19 While That Case Was Ill? No MIGRATION.90836 79353 Information not available 12/10/2022 In The 14 Days Before Symptom Onset, Have You Had Close Contact With A Person Who Is Under Investigation For COVID-19 While That Person Was Ill? No MIGRATION.70411 34641 Information not available 12/10/2022 What Type Of Diet Are You Following? REGULAR MIGRATION.49680 03405 Information not available 12/10/2022 What Is The Highest Grade Or Level Of School You Have Completed Or The Highest Degree You Have Received? [id number] MIGRATION.83950 60674 Information not available 12/10/2022 Have There Been Any Changes To Your Family Or Social Situation? No MIGRATION.79964 70634 Information not available 12/10/2022 What Is The Fluoride Status Of Your Home? Unknown MIGRATION.54775 35946 Information not available 12/10/2022 Do You Use Insect Repellent Routinely? Yes MIGRATION.88807 64196 Information not available 12/10/2022 Where Do You Live? [place] MIGRATION.63165 35928 Information not available 12/10/2022 Do You Have A Medical Power Of Conservation Educator? No MIGRATION.29949 47388 Information not available 12/10/2022 What Was The Date Of Your Most Recent Tobacco Screening? 01/30/2025 [email or web address] Information not available 01/30/2025 Have You Ever Been Counseled For Unhealthy Alcohol Use? No MIGRATION.63688 80218 Information not available 12/10/2022 Do You Have Any Pets? Yes MIGRATION.76278 88366 Information not available 12/10/2022 What Is Your Relationship Status? MIGRATION.10418 36636 Information not available 12/10/2022 Do You Use Your Seat Belt Or Car Seat Routinely? Yes MIGRATION.93497 57948 Information not available 12/10/2022 Do You Have Smoke And Carbon Monoxide Detectors In Your Home? Yes MIGRATION.14993 07801 Information not available 12/10/2022 Are You Passively Exposed To Smoke? No MIGRATION.79548 44432 Information not available 12/10/2022 Are There Any Smokers In Your House? No MIGRATION.21289 17397 Information not available 12/10/2022 Do You Participate In Social Media? Yes MIGRATION.10326 19202 Information not available 12/10/2022 Do You Use Sunscreen Routinely? Yes MIGRATION.97309 02586 Information not available 12/10/2022 Has Tobacco Cessation Counseling Been Provided? No MIGRATION.55709 04914 Information not available 12/10/2022 Have You Recently Traveled Abroad? No MIGRATION.10649 82418 Information not available 12/10/2022 Are You Currently In School? No MIGRATION.35080 26376 Information not available 12/10/2022 Do You Have Any Dietary Restrictions? No MIGRATION.62018 52470 Information not available 12/10/2022 Sex: Male Functional Status Question Answer Note LastModified by Organizat ion Details LastModified Time Do you use any illicit or recreational drugs? No MIGRATION.7461360 026 Information not available 12/10/2022 Do you or have you ever used any other forms of tobacco or nicotine? No MIGRATION.2419097 026 Information not available 12/10/2022 What is your level of alcohol consumption? 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 Occasional MIGRATION.0861154 026 Information not available 12/10/2022 Mental Status Question Answer Note LastModified by Organizat ion Details LastModified Time Do you feel stressed (tense, restless, nervous, or anxious, or unable to sleep at night)? [id number] MIGRATION.[id number] 6 Information not available 12/10/2022 Family History Relationship Description Onset Age of this Age Resolved Age Notes LastModified by Organization Details LastModified Time Father Obstructive sleep apnea syndrome [email or web address] Not available 08/13 14:05:41 Father Family history of malignant neoplasm skin that effect ed lymph nodes [email or web address] Not available 08/31/2025 14:05:41 Father Diabetes mellitus [email or web address] Not available 2024 10:12:07 Father Hypertensive disorder [email or web address] Not available 2024 10:12:15 Notes:SISTER: SINUS SURGERY Medical History Condition Response ENT Y Past Encounters Encounter ID Performer Location Encounter Start Date Encounter Closed Date Diagnosis/Indication Diagnosis SNOMED-CT Code Diagnosis ICD10 Code Diagnosis IMO Codes Diagnosis Note [id number] Shine Mills MD [facility] [address] [place] [address] 08/31/2025 14:02:08 09/01/2025 09:51:57 Anterior epistaxis 891988115 R04.0 [id number] Health Concerns Section Related Observation LastModified by Organization [facility] LastModified Time None Recorded Concern Status LastModified by Organization Details LastModified Time None Recorded Payers Encounter Date Sequence Insurance Name Policy Number Policy Velasquez Covered Member ID Velasquez Member ID Guarantor Name 08/31/2025 1 [facility] [id number] [facility] [id number] [place] Notes Date Note Type Note Provider Name and Address Organization Details Recorded Time 08/31/2025 text/html the patient has had a lifetime of epistaxis. This has been bilateral. No treatment has been done. There is no history of hemorrhagic hereditary telangiectasia Shine Mills MD [address] [place] [address], [phone], [place] - [place] [employer] 08/31/2025 14:30:34
--- NOTE | 2025-10-08 20:46 | PC.NURSE ---
pt to ED for dog bite to L thumb appears red,and swollen. Pt has scratches to R shoulder and R arm.
--- NOTE | 2025-10-08 20:55 | ED_ITS ---
HPI - Animal Bite General Chief Complaint: Animal Bite Stated Complaint: dog bite to left hand Time Seen by Provider: 10/08/25 20:40 History of Present Illness HPI narrative: 40-year-old otherwise healthy male presenting with a dog bite to his left hand. Patient states he was bit by a stray dog and is not sure with the dog belongs to. Unknown dog vaccine status. Patient is not of the data his tetanus. Has never had a rabies vaccine series before and not interested in starting it today. Patient has several bites to his left hand as well as a scratch was right shoulder in scratch to his right upper extremity. Happened about 2-1/2 hours ago. Was otherwise in his normal state of health. Had some swelling and pain in the dorsum of left hand with a bite is located. No other symptoms. No fever, chills. Pain /10. no purulent drainage or bleeding. Related Data Home Medications ?Medication ?Instructions ?Recorded ?Confirmed ?Last Taken ?Type allopurinol 300 mg tablet 09/10/20 Unknown History aspirin 81 mg tablet 81 mg PO DAILY 09/10/2008/14 Unknown History atorvastatin 80 mg tablet 09/10/20 Unknown History cetirizine 10 mg tablet mg 09/10/20 Unknown History ezetimibe 10 mg tablet mg 09/10/20 Unknown History omeprazole 40 mg capsule,delayed 09/10/20 Unknown Hi story release Allergies Allergy/AdvReac Type Severity Reaction Status Date / Time No Known Allergies Allergy Unknown Verified 10/27/23 22:16 Review of Systems Review of Systems: As reviewed above in HPI All systems reviewed & are unremarkable except as noted in HPI and below PMFSH Past Medical History Medical History History of gastroesophageal reflux (GERD) History of hyperlipidemia Social History Social History Smoking status: Never smoker Gender identity (if verbalized by the patient): Male Exam Narrative: GENERAL: [Well-appearing, well-nourished, and in no acute distress.] HEAD: [Normocephalic, atraumatic.] EYES: [PERRLA and EOMI.] ENT: Nares clear, no rhinorrhea or epistaxis. Mucous membranes moist. NECK: Supple. CHEST: [Clear to auscultation. No respiratory distress.] HEART: [Regular rate and rhythm]. No murmur heard. [Normal peripheral pulses.] ABDOMEN: [Soft, nondistended], [nontender], [No rigidity or guarding] EXTREMITIES: Left hand has about 5 small punctate knox around and proximal to the webspace between the 1st and 2nd digit localized to the dorsum of the left hand. no significant depth with there is some soft tissue swelling. No purulent drainage or bleeding. Able to oppose each digit and make a thumbs-up sign. No restriction range of motion at the wrist. No weakness or neuropathy. right upper extremity at the shoulder has a superficial scratch and bruise to the anterolateral deltoid portion as well as a superficial scratch to the anterior right biceps region. no restricted range of motion there or any significant skin breakdown or any wound depth. SKIN: Warm, dry, no rash. NEURO: [No focal deficits]. Alert and oriented [x3.] PSYCH: [Normal mood and affect.] Course Vital Signs Vital signs: Vital Signs Temperature 36.7 C 10/08/25 20:27 Pulse Rate 67 10/08/25 20:27 Respiratory Rate 16 10/08/25 20:27 Blood Pressure 149/79 H 10/08/25 20:27 Pulse Oximetry 99 10/08/25 20:27 Oxygen Delivery Room Air 10/08/25 20:27 Temperature 36.5 C 10/08/25 22:57 Pulse Rate 63 10/08/25 22:57 Respiratory Rate 14 10/08/25 22:57 Blood Pressure 140/73 10/08/25 22:57 Pulse Oximetry 96 10/08/25 22:57 Oxygen Delivery Room Air 10/08/25 20:27 [facility] MDM Narrative Medical decision making narrative: 40-year-old otherwise healthy male presenting with a dog bite to his left hand. Patient states he was bit by a stray dog and is not sure with the dog belongs to. Unknown dog vaccine status. Patient is not of the data his tetanus. Has never had a rabies vaccine series before and not interested in starting it today. Patient has several bites to his left hand as well as a sc ratch was right shoulder in scratch to his right upper extremity. Happened about 2-1/2 hours ago. Was otherwise in his normal state of health. Had some swelling and pain in the dorsum of left hand with a bite is located. No other symptoms. No fever, chills. Pain 5/10. no purulent drainage or bleeding. Left hand has about 5 small punctate knox around and proximal to the webspace between the 1st and 2nd digit localized to the dorsum of the left hand. no significant depth with there is some soft tissue swelling. No purulent drainage or bleeding. Able to oppose each digit and make a thumbs-up sign. No restriction range of motion at the wrist. No weakness or neuropathy. right upper extremity at the shoulder has a superficial scratch and bruise to the anterolateral deltoid portion as well as a superficial scratch to the anterior right biceps region. no restricted range of motion there or any significant skin breakdown or any wound depth. Patient is afebrile with no systemic symptoms. No tachycardia, tachypnea. Bite just occurred several hours ago. Will require antibiotics and wound cleansing. Wound was cleaned and dried. Triple antibiotic ointment was applied. X-rays were obtained to rule out any foreign bodies. Wounds appear very superficial and discussed not closing them for allowing secondary intention and preventing trapping of bacteria in hand wounds. Patient will require antibiotics for 7 days. We did discuss rabies vaccination initiation and risks and benefits of this but patient declined, would not want that, but he was okay get a tetanus update and pain control medications. These were provided and patient will be safe for discharge upon x- rays. X-ray of the left hand shows a foreign body in the anterior superficial surface of his left palmar 3rd digit which does not correlate to the site of his puncture knox and he has no puncture over the palmar surface of the left hand. no other appreciable foreign bodies. Appears metallic in nature. I went and re-evaluated the patient and confirmed no area of injury or skin breakdown correlating with this site and he states that he has had remote injury exactly the location of were I pointed on the imaging and on his exam were he has no swelling or tenderness. States injury was in childhood and suspected a retained object that his mother never took him to the doctor for and he's never been imaged for. This is more reassuring that it is not related to today's dog bite. No need for procedure to remove at this time. Patient received his antibiotics and will be given hand surgery referral for follow-up given the location and strict return precautions. patient comfortable with plan and safe for discharge with return precautions. Differential Diagnosis Differential Diagnosis: Animal bite, retained foreign body, hand infection Imaging Data Attestation: I personally reviewed and interpreted this imaging study as follows: My impression: foreign body over 3rd anterior metacarpal, no fracture Discharge Plan Discharge Clinical Impression: Dog bite, Foreign body (FB) in soft tissue Patient Disposition: Home Condition: Stable Instructions: Antibiotic Form, Animal Bite (ED), Puncture Wound (DC) Additional Instructions: X-ray shows a remote metallic appearing foreign body in the anterior surface of the left 3rd digit palm not correlating to the area of injury today and unlikely related to the dog bite more likely related to the old injury you had in childhood. Dog bite to the hand requires antibiotics and close monitoring. If you start noticing purulent drainage from the wounds, severe increasing pain, fevers, streaking redness up the extremity, restricted mobility or function of the hand or any other issues please return to the emergency department otherwise follow-up with regular primary care provider and the hand surgeon we have referred you to. We have given you prescription antibiotics and anti- inflammatory medications. Clean the wounds at least once daily and apply bandages and triple antibiotic ointment. Patient Language: Guamanian Prescriptions: New amoxicillin-pot clavulanate 875-125 mg tablet 1 tablet PO Q12H 7 Days Qty: 14 0RF Triple Antibiotic 3.5mg-400 unit- 5,000 unit/gram ointment 1 applic topical DAILY Qty: 14 0RF ibuprofen 800 mg tablet 800 mg PO TID PRN (Reason: pain) Qty: 30 0RF acetaminophen [Tylenol Extra Strength] 500 mg tablet 1,000 mg PO TID PRN (Reason: pain) Qty: 30 0RF No Action atorvastatin 80 mg tablet cetirizine 10 mg tablet omeprazole 40 mg capsule,delayed release(DR/EC) allopurinol 300 mg tablet aspirin 81 mg Tablet 81 mg PO DAILY ezetimibe 10 mg tablet naproxen 500 mg tablet 500 mg PO BID PRN (Reason: pain) Qty: 20 0RF naproxen 500 mg tablet 500 mg PO BID Qty: 14 0RF cyclobenzaprine 10 mg tablet 10 mg PO TID PRN (Reason: muscle spasm) Qty: 14 0RF oseltamivir [Tamiflu] 75 mg capsule 75 mg PO Q12H 5 Days Qty: 10 0RF Follow-up/Referrals: Nicolasa Forte MD [Physician, Plastic Surgery] - 1 Week Referral Note: Dog bite to left hand, old retained foreign body Chris,MD Luis [Primary Care Provider, Unknown] Stand Alone Forms: Work/School Release IP Time of Disposition: 22:07
--- OUTSIDE RECORDS SUMMARY | 2025-10-08 21:16 | XMS_ITS | Clinical Summary ---
Author Organization [facility] Address [address] [place] [address] Care Team Providers Care Lab Director Name Role Phone Unavailable Primary Care Provider Unavailabl e Source Comments [facility],non-owned Affiliates and Associated Physician Practices is amultiple site organization consisting of ambulatory clinics and hospital sitesin [place], [place], [place] and [place]. This disclosure is being madepursuant to the Care Everywhere program and may not contain all information available regarding this patient. Last updated 18.[facility] Allergies No known active allergies Medications * [...] age to complete this topic Insurance [facility]
[2025-10-08] MEDS: KETOROLAC 30 MG/ML VIAL (*BKC) IM (22:04)
[2025-10-08] MEDS: TETANUS,DIPHTHERIA,AC PERTUSSIS ADULT (0.5 ML) BOOSTRIX IM (22:05)
[2025-10-08] MEDS: NEOMYCIN/POLYMYXIN/BACITRACIN OINTMENT 15 GM TUBE 1 APPLIC TOPICAL (22:34)
[2025-10-08 22:57] VITALS: BP 140/73; PULSE 63; RESP 14; TEMP 36.5; O2SAT 96
== END 2025-10-08 22:59 | disposition home or self-care (01) ==
LOC: ANHED 21:14
PROVIDERS: Emergency Provider Student in an Organized Health Care Education/Training Program; PCP Family Medicine
DX: S61.452A Open bite of left hand, initial encounter (principal); W54.0XXA Bitten by dog, initial encounter; M79.5 Residual foreign body in soft tissue; S40.211A Abrasion of right shoulder, initial encounter; K21.9 Gastro-esophageal reflux disease without esophagitis; E78.5 Hyperlipidemia, unspecified; Z23 Encounter for immunization
CPT/HCPCS: 73120; 90715; 96372; 99283; A9270; J1885